=== PATIENT | female | born 1955 | race Hispanic/Latino ===

== ENCOUNTER 2017-06-11 03:11 | Emergency (ER) | payer OTHER ==
--- NOTE | 2017-06-11 04:50 | Cat Scan Report ---
FINAL REPORT EXAM: CT HEAD/BRAIN WO CON HISTORY: hematoma to rt side of head/ pt c/o dizziness TECHNIQUE: Routine axial imaging was obtained the brain without IV contrast. FINDINGS: There is no evidence of acute stroke or hemorrhage. The ventricular system is appropriate in size and is symmetric. The visualized sinuses are clear. The mastoid air cells are well pneumatized. There is mild soft tissue swelling overlying the right frontal region of the skull. There is no evidence of skull fracture. IMPRESSION: Mild right-sided pre frontal scalp swelling. No skull fracture. No evidence of acute stroke or hemorrhage.
--- NOTE | 2017-06-11 06:52 | Emergency Department Report ---
ED Headache HPI - General Chief Complaint: Headache Stated Complaint: R SIDE HEAD HEMATOMA Source: patient Exam Limitations: no limitations - History of Present Illness Initial Comments: 61 YO FEMALE WAS TAKING ICE FROM A FREEZER ON WHICH RESTED A CROCK POT , WHEN SHE CLOSED THE FREEZER , THE CROCK POT FELL ON HER HEAD. Timing/Duration: 4-6 hours Quality: moderate Head Injury Location: frontal (RIGHT ) Recent Head Trauma: head trauma < 24 hrs ago Associated Symptoms: denies symptoms. denies: loss of consciousness, nausea/ vomiting Allergies/Adverse Reactions: Allergies iodine Allergy (Verified 06/11/17 03:14) Anaphylaxis Home Medications: Ambulatory Orders oxyCODONE /ACETAMINOPHEN [Percocet 5/325] 2 tab PO Q6HR PRN #14 tablet 06/11/17 ED Review of Systems ROS: Stated complaint: R SIDE HEAD HEMATOMA Other details as noted in HPI Constitutional: denies: chills, fever Eyes: denies: eye pain, eye discharge, vision change ENT: denies: ear pain, throat pain Respiratory: denies: cough, shortness of breath, wheezing Cardiovascular: denies: chest pain, palpitations Endocrine: no symptoms reported Gastrointestinal: denies: abdominal pain, nausea, diarrhea Genitourinary: denies: urgency, dysuria, discharge Musculoskeletal: denies: back pain, joint swelling, arthralgia Skin: denies: rash, lesions Neurological: other (DIZZINESS). denies: headache, weakness, paresthesias, confusion Psychiatric: denies: anxiety, depression Hematological/Lymphatic: denies: easy bleeding, easy bruising ED Past Medical Hx - Past Medical History Previous Medical History?: Yes Hx Hypertension: Yes Additional medical history: rectal cancer; high cholesterol - Surgical History Past Surgical History?: Yes Hx Appendectomy: Yes (1978) Hx Breast Surgery: Yes (1996) Additional Surgical History: x2; knee surgery to left knee 2000; rotator cuff surgery left arm - Social History Smoking Status: Never Smoker Substance Use Type: None - Medications Home Medications: Home Medications Medication Instructions Recorded Confirmed Last Taken Type oxyCODONE /ACETAMINOPHEN [Percocet 2 tab PO Q6HR PRN #14 tablet 06/11/17 Unknown Rx 5/325] ED Physical Exam - General Limitations: No Limitations General appearance: alert, in no apparent distress - Head Head exam: Present: normocephalic, other (RIGHT FRONTAL HEMATOMA) - Eye Eye exam: Present: normal appearance - ENT ENT exam: Present: mucous membranes moist - Neck Neck exam: Present: normal inspection, full ROM - Respiratory Respiratory exam: Present: normal lung sounds bilaterally. Absent: respiratory distress - Cardiovascular Cardiovascular Exam: Present: regular rate, normal rhythm. Absent: systolic murmur, diastolic murmur, rubs, gallop - GI/Abdominal GI/Abdominal exam: Present: soft, normal bowel sounds - Rectal Rectal exam: Present: deferred - Extremities Exam Extremities exam: Present: normal inspection, full ROM - Back Exam Back exam: Present: normal inspection - Neurological Exam Neurological exam: Present: alert, oriented X3 - Psychiatric Psychiatric exam: Present: normal affect, normal mood - Skin Skin exam: Present: warm, dry, intact, normal color. Absent: rash ED Course Vital Signs 06/11/17 03:14 Temperature 98.3 F Pulse Rate 81 Blood Pressure 139/90 O2 Sat by Pulse 97 Oximetry ED Medical Decision Making - Radiology Data Radiology results: report reviewed (CT HEAD: NEGATIVE FRACURE OR BLEED, RIGHT FRONTAL HEMATOMA) Critical care attestation.: If time is entered above; I have spent that time in minutes in the direct care of this critically ill patient, excluding procedure time. ED Disposition Clinical Impression: Traumatic hematoma Closed head injury Qualifiers: Encounter type: initial encounter Qualified Code(s): S09.90XA - Unspecified injury of head, initial encounter Concussion Qualifiers: Encounter type: initial encounter Loss of consciousness presence/duration: without LOC Qualified Code(s): S06.0X0A - Concussion without loss of consciousness, initial encounter Disposition: DC-01 TO HOME OR SELFCARE Is pt being admited?: No Does the pt Need Aspirin: No Condition: Stable Instructions: Minor Head Injury (ED), Concussion (ED) Prescriptions: oxyCODONE /ACETAMINOPHEN [Percocet 5/325] 2 tab PO Q6HR PRN #14 tablet PRN Reason: Pain Referrals: VANDANA PAK MD [Primary Care Provider] - 3-5 Days Time of Disposition: 06:55
[2017-06-11 07:04] VITALS: BP 132/81
== END 2017-06-11 07:05 | disposition home or self-care (01) ==
LOC: ED 03:11
DX: S06.0X0A Concussion without loss of consciousness, initial encounter (principal); I10 Essential (primary) hypertension; E78.5 Hyperlipidemia, unspecified; Z88.8 Allergy status to other drugs, medicaments and biological substances; W22.8XXA Striking against or struck by other objects, initial encounter; Y93.9 Activity, unspecified; Y99.9 Unspecified external cause status; Y92.89 Other specified places as the place of occurrence of the external cause
CPT/HCPCS: 70450

== ENCOUNTER 2018-08-04 21:09 | Inpatient (IN) | payer OTHER ==
[2018-08-04] MEDS ORDERED: ATARAX PO ONE (22:12)
--- NOTE | 2018-08-04 22:22 | Emergency Department Report ---
- General Chief Complaint: Upper Respiratory Infection Stated Complaint: COLD SX Time Seen by Provider: 08/04/18 22:10 Source: patient Mode of arrival: Ambulatory Limitations: No Limitations - History of Present Illness MD Complaint: fever - Related Data Previous Rx's Medication Instructions Recorded Last Taken Type oxyCODONE /ACETAMINOPHEN [Percocet 2 tab PO Q6HR PRN #14 tablet 06/11/17 Unknown Rx 5/325] Allergies Allergy/AdvReac Type Severity Reaction Status Date / Time iodine Allergy Anaphylaxis Verified 06/11/17 03:14 ED Review of Systems ROS: Stated complaint: COLD SX Other details as noted in HPI ED Past Medical Hx - Past Medical History Previous Medical History?: Yes Hx Hypertension: Yes Hx of Cancer: Yes (anal stage 4. Remission) Hx Psychiatric Treatment: Yes (anextiy) Additional medical history: rectal cancer; high cholesterol - Surgical History Past Surgical History?: Yes Hx Appendectomy: Yes (1978) Hx Breast Surgery: Yes (1996) Additional Surgical History: ; knee surgery to left knee 2000; rotator cuff surgery left arm. anal surgery - Social History Smoking Status: Never Smoker Substance Use Type: None - Medications Home Medications: Home Medications Medication Instructions Recorded Confirmed Last Taken Type oxyCODONE /ACETAMINOPHEN [Percocet 2 tab PO Q6HR PRN #14 tablet 06/11/17 Unknown Rx 5/325] ED Physical Exam - General Limitations: No Limitations Critical care attestation.: If time is entered above; I have spent that time in minutes in the direct care of this critically ill patient, excluding procedure time. ED Disposition Condition: Stable
[2018-08-04 22:32] LABS: Hematocrit 42.8 % (30.3-42.9); Hemoglobin 14.4 gm/dl (10.1-14.3); Mean Corpuscular HGB Conc 34 % (30-34); Mean Corpuscular Volume 90 fl (79-97); Platelet Count 179 K/mm3 (140-440); Red Blood Count 4.76 M/mm3 (3.65-5.03)
[2018-08-04 22:47] LABS: Albumin 4.1 g/dL (3.9-5); Calcium 9.1 mg/dL (8.4-10.2)
--- NOTE | 2018-08-04 22:47 | XRay Report ---
FINAL REPORT PROCEDURE: XR CHEST ROUTINE 2V TECHNIQUE: PA and lateral chest radiographs were obtained. CPT 41814 HISTORY: mann,cough COMPARISON: No prior studies are available for comparison. FINDINGS: Heart: Normal. Mediastinum/Vessels: Normal. Lungs/Pleural space: Normal. Bony thorax: No acute osseous abnormality. Other: IMPRESSION: Normal examination.
[2018-08-04 23:17] LABS: Bilirubin,Urine NEG (Negative); Blood,Urine SM (Negative); Color,Urine Yellow (Yellow); Mucus,Urine 1+ /HPF; Urobilinogen,Urine < 2.0 mg/dL (<2.0)
[2018-08-04] MEDS ORDERED: NACL 0.9% 1000 ML IV ONE (23:22)
[2018-08-04 23:28] LABS: Band Neutrophils # (Manual) 1.4 K/mm3; Basophils % (Manual) 0 % (0.0-1.8); Eosinophils % (Manual) 0 % (0.0-4.3); RBC Morphology Normal; Total Cells Counted 100
--- NOTE | 2018-08-04 23:54 | Emergency Department Report ---
Chief Complaint: Upper Respiratory Infection Stated Complaint: COLD SX Time Seen by Provider: 08/04/18 22:10 - HPI History of Present Illness: 62 year old female comes to the emergency room stating that she started about 1 PM with body aches and cold symptoms. Patient reports that she was having shortness of breath, headache, hot hot flashes and chills. Complains of shortness of breath, sneezing a lot, abdominal abscess in the lower back pain with cough. Patient reports that she suffers from anxiety. Patient reports that she had flu several weeks ago. Patient has a history of stage IV anorectal cancer and has completed chemotherapy and radiation. - ROS Review of Systems: Positive: Shortness of breath, abdominal pain, chest pain, sneezing, hot and cold and fever with body aches. - Exam Vital Signs: Vital Signs 08/04/18 21:14 Temperature 99.2 F Pulse Rate 110 H Respiratory 22 Rate Blood Pressure 134/82 O2 Sat by Pulse 93 Oximetry Physical Exam: Gen: alert oriented NAD Cardic: Tachycardic no murmurs appreciated Resp: Clear to auscultation bilateral no wheezing no rales or rhonchi. Abdomen: Soft nontender nondistended normal bowel sounds. Mini neuro: Normal finger to nose exam, [id number] normal, Romberg neg, strengh 4/5 all extrimities, Alert and oriented time 3 Crainal nerve II-IIX intact MSE screening note: Focused history and physical exam performed. Due to findings the following was ordered: CBC, CMP, urinalysis, d-dimer, chest x-ray has been ordered. Sepsis protocol has been started. ED Medical Decision Making - Lab Data Result diagrams: 08/04/18 22:21 08/04/18 22:21 ED Disposition for MSE Condition: Stable Referrals: VANDANA PAK MD [Primary Care Provider] - 3-5 Days
[2018-08-05] MEDS ORDERED: ZOFRAN IV ONE (00:07)
[2018-08-05] MEDS ORDERED: TYLENOL PO ONE (00:07)
[2018-08-05] MEDS ORDERED: MORPHINE IV ONE ×2 (00:07→04:39)
--- NOTE | 2018-08-05 00:10 | Emergency Department Report ---
ED General Adult HPI - General Chief complaint: Upper Respiratory Infection Stated complaint: COLD SX Time Seen by Provider: 08/04/18 22:10 Source: patient Mode of arrival: Ambulatory Limitations: No Limitations - History of Present Illness Initial comments: Patient is 62 years old female with history of cancer status post chemotherapy is complete remission. Patient presented to the emergency room complaining of generalized body ache and chills started this afternoon. Patient denied any runny nose or congestion. Patient is also complaining of suprapubic abdominal pain and tenderness. She denied any nausea or vomiting or diarrhea. - Related Data Previous Rx's Medication Instructions Recorded Last Taken Type oxyCODONE /ACETAMINOPHEN [Percocet 2 tab PO Q6HR PRN #14 tablet 06/11/17 Unknown Rx 5/325] Allergies Allergy/AdvReac Type Severity Reaction Status Date / Time iodine Allergy Anaphylaxis Verified 06/11/17 03:14 ED Review of Systems ROS: Stated complaint: COLD SX Other details as noted in HPI Comment: All other systems reviewed and negative Constitutional: chills, fever Respiratory: cough. denies: orthopnea, shortness of breath, SOB with exertion, SOB at rest, wheezing Cardiovascular: denies: chest pain, palpitations Gastrointestinal: abdominal pain. denies: nausea, vomiting, diarrhea, constipation, hematemesis, melena, hematochezia Genitourinary: urgency, frequency. denies: dysuria, hematuria, discharge Musculoskeletal: denies: back pain Neurological: denies: headache, weakness, numbness, paresthesias, confusion ED Past Medical Hx - Past Medical History Previous Medical History?: Yes Hx Hypertension: Yes Hx of Cancer: Yes (anal stage 4. Remission) Hx Psychiatric Treatment: Yes (anextiy) Additional medical history: rectal cancer; high cholesterol - Surgical History Past Surgical History?: Yes Hx Appendectomy: Yes (1978) Hx Breast Surgery: Yes (1996) Additional Surgical History: x2; knee surgery to left knee 2000; rotator cuff surgery left arm. anal surgery - Social History Smoking Status: Never Smoker Substance Use Type: None - Medications Home Medications: Home Medications Medication Instructions Recorded Confirmed Last Taken Type oxyCODONE /ACETAMINOPHEN [Percocet 2 tab PO Q6HR PRN #14 tablet 06/11/17 Unknown Rx 5/325] ED Physical Exam - General Limitations: No Limitations General appearance: alert, in no apparent distress, anxious - Head Head exam: Present: atraumatic, normocephalic, normal inspection - Eye Eye exam: Present: normal appearance - ENT ENT exam: Present: normal exam, normal orophraynx, mucous membranes moist - Neck Neck exam: Present: normal inspection, full ROM. Absent: tenderness, meningismus, lymphadenopathy, thyromegaly - Respiratory Respiratory exam: Present: normal lung sounds bilaterally - Cardiovascular Cardiovascular Exam: Present: regular rate, normal rhythm, normal heart sounds - GI/Abdominal GI/Abdominal exam: Present: soft, tenderness (suprapubic tenderness), normal bowel sounds. Absent: distended, guarding, rebound, rigid, organomegaly, mass, bruit, pulsatile mass, hernia - Extremities Exam Extremities exam: Present: normal inspection, full ROM, normal capillary refill. Absent: pedal edema, calf tenderness - Back Exam Back exam: Present: normal inspection, full ROM - Neurological Exam Neurological exam: Present: alert, oriented X3, CN II-XII intact, normal gait, reflexes normal - Skin Skin exam: Present: warm, intact, normal color ED Course Vital Signs 08/04/18 08/05/18 08/05/18 21:14 02:52 03:00 Temperature 99.2 F Pulse Rate 110 H 86 Respiratory 22 21 Rate Blood Pressure 134/82 103/64 92/54 O2 Sat by Pulse 93 95 Oximetry ED Medical Decision Making - Lab Data Result diagrams: 08/04/18 22:21 08/04/18 22:21 - Radiology Data Radiology results: report reviewed Referring Physician: KAYLA SOW Patient Name: KENDRA LR Date of : 1955 Sex: Female Report Date: 2018-08-05 Report Status: Finalized Findings [facility] [address] [place] [address] Nuclear Medicine Report Signed Patient: KENDRA LR MR#: [id number] : 1955 Acct:[id number] Age/Sex: 62 / F ADM Date: 08/04/18 Loc: ED Attending Dr: Ordering Physician: KAYLA SOW Date of Service: 08/05/18 Procedure(s): NM lung scan perf/vent Accession Number(s): [id number] cc: KAYLA SOW FINAL REPORT PROCEDURE: NM LUNG SCAN PERF/VENT TECHNIQUE: Five mCi Tc-99m MAA was injected IV for pulmonary perfusion imaging in multiple projections. Fifteen xenon 133 gas was inhaled for pulmonary ventilation imaging in multiple projections. Injection site: RIGHT antecubital fossa. CPT 47824 HISTORY: cough/SOB, elevated d-dimer COMPARISON: No prior studies are available for comparison. FINDINGS: Perfusion: No defects . Ventilation: No defects . IMPRESSION: Normal Examination Transcribed By: [facility] Dictated By: FILOMENA STEVENS MD Electronically Authenticated By: FILOMENA STEVENS MD Signed Date/Time: 08/05/18304 DD/ 7 TD/TT: 08/05/18307 Referring Physician: KAYLA SOW Patient Name: KENDRA LR Date of : 1955 Sex: Female Report Date: 2018-08-05 Report Status: [place] [address] Cat Scan Report Signed Patient: KENDRA LR MR#: [id number] : 1955 Acct:[id number] Age/Sex: 62 / F ADM Date: 08/04/18 Loc: ED Attending Dr: Ordering Physician: KAYLA SOW Date of Service: 08/05/18 Procedure(s): CT abdomen pelvis wo con Accession Number(s): [id number] cc: KAYLA SOW FINAL REPORT PROCEDURE: CT ABDOMEN PELVIS WO CON TECHNIQUE: Computerized axial tomography of the abdomen and pelvis was performed without intravenous contrast. This study is performed without intravascular contrast material and its sensitivity for abdominal and pelvic pathology, including neoplasms, inflammation, abscess, free fluid, thrombosis, arterial dissection and infarction, is reduced compared with a contrast enhanced study. HISTORY: ABDOMINAL PAIN COMPARISON: No prior studies are available for comparison. FINDINGS: Visualized lower thorax: No significant abnormality. Liver: Normal size and attenuation. Spleen: Normal size and attenuation. Gallbladder and biliary system: Normal. Pancreas: Normal. Adrenals: Normal. Kidneys: Normal. GI tract: There is no evidence of obstruction. No ileus or enteritis. Cecum and appendix are normal. The colon is normal.. Lymph nodes and mesentery: Normal. Vasculature: Normal. Bladder: Normal. Reproductive organs: Normal. Peritoneum: No free fluid. Musculoskeletal structures: No significant abnormality. Other: None. IMPRESSION: There is no evidence of intestinal or urinary tract obstruction. No ileus or enteritis.. Transcribed By: [facility] Dictated By: FILOMENA STEVENS MD Electronically Authenticated By: FILOMENA STEVENS MD Signed Date/Time: 08/05/1856 DD/ TD/TT: 08/05/1858 - Medical Decision Making Patient is 62 years old female with history of cancer status post chemotherapy is complete remission. Patient presented to the emergency room complaining of generalized body ache and chills started this afternoon. Patient denied any runny nose or congestion. Patient is also complaining of suprapubic abdominal pain and tenderness. She denied any nausea or vomiting or diarrhea. Patient stated that she is feeling better. CT abdomen and pelvis is negative for acute finding. Urine is negative. Chest x-ray is negative. VQ scan is negative for PE. I discussed the patient is Dr. Woody, he agreed to admit the patient to medical service. Critical Care Time: Yes Critical care time in (mins) excluding proc time.: 30 Critical care attestation.: If time is entered above; I have spent that time in minutes in the direct care of this critically ill patient, excluding procedure time. ED Disposition Clinical Impression: Fever, Abdominal pain, Shortness of breath Disposition: OP ADMIT IP TO THIS HOSP Is pt being admited?: Yes Condition: Stable Referrals: VANDANA PAK MD [Primary Care Provider] - 3-5 Days
--- NOTE | 2018-08-05 00:57 | Cat Scan Report ---
FINAL REPORT PROCEDURE: CT ABDOMEN PELVIS WO CON TECHNIQUE: Computerized axial tomography of the abdomen and pelvis was performed without intravenous contrast. This study is performed without intravascular contrast material and its sensitivity for ab dominal and pelvic pathology, including neoplasms, inflammation, abscess, free fluid, thrombosis, art erial dissection and infarction, is reduced compared with a contrast enhanced study. HISTORY: ABDOMINAL PAIN COMPARISON: No prior studies are available for comparison. FINDINGS: Visualized lower thorax: No significant abnormality. Liver: Normal size and attenuation. Spleen: Normal size and attenuation. Gallbladder and biliary system: Normal. Pancreas: Normal. Adrenals: Normal. Kidneys: Normal. GI tract: There is no evidence of obstruction. No ileus or enteritis. Cecum and appendix are normal. The colon is normal.. Lymph nodes and mesentery: Normal. Vasculature: Normal. Bladder: Normal. Reproductive organs: Normal. Peritoneum: No free fluid. Musculoskeletal structures: No significant abnormality. Other: None. IMPRESSION: There is no evidence of intestinal or urinary tract obstruction. No ileus or enteritis..
[2018-08-05] MEDS ORDERED: ZOSYN/NS 3.375GM/50ML 3.375 GM/50 ML BAG IV ONE (01:00)
--- NOTE | 2018-08-05 03:05 | Nuclear Medicine Report ---
FINAL REPORT PROCEDURE: NM LUNG SCAN PERF/VENT TECHNIQUE: Five mCi Tc-99m MAA was injected IV for pulmonary perfusion imaging in multiple projectio ns. Fifteen xenon 133 gas was inhaled for pulmonary ventilation imaging in multiple projections. Inje ction site: RIGHT antecubital fossa. CPT 72129 HISTORY: cough/SOB, elevated d-dimer COMPARISON: No prior studies are available for comparison. FINDINGS: Perfusion: No defects . Ventilation: No defects . IMPRESSION: Normal Examination
[2018-08-05] MEDS ORDERED: ZOFRAN IV PRN (04:07)
[2018-08-05] MEDS ORDERED: ROBITUSSIN PO PRN (04:08)
--- NOTE | 2018-08-05 04:48 | History and Physical Report ---
CHIEF COMPLAINT: Flu-like symptoms. HISTORY OF PRESENT ILLNESS: The patient is a 62-year-old female, who has been having upper respiratory tract cold symptoms with congestion, cough, fever going on for about 24 hours to 48 hours. There is also a history of tachycardia and chills. The patient is also complaining of shortness of breath with no chest pain. There is also no history of nausea and vomiting or change in mental status. The patient was seen and presented for admission. PAST MEDICAL HISTORY: Pertinent for hypertension, anal stage 4 cancer in remission; anxiety disorder, high cholesterol. PAST SURGICAL HISTORY: Pertinent for appendectomy, breast surgery, , knee surgery, rotator cuff surgery and anal surgery. FAMILY HISTORY: Noncontributory. SOCIAL HISTORY: The patient lives with family, does not smoke, does not drink alcohol and does not use illicit drugs. MEDICATIONS: The patient is on Percocet 5/325 mg 2 tablets by mouth every 6 hours as needed for pain. ALLERGIES: THE PATIENT IS ALLERGIC TO IODINE. REVIEW OF SYSTEMS: CONSTITUTIONAL: There is fever, there is chills, but no diaphoresis. HEENT: There is no headache or sore throat. CARDIOVASCULAR SYSTEM: There is no chest pain or orthopnea. RESPIRATORY SYSTEM: Shortness of breath is present. Cough is present. Congestion present. GASTROINTESTINAL: There is no nausea, no vomiting, no abdominal pain, diarrhea or constipation. NEUROLOGICAL: There is no numbness, no dizziness, no altered mental status. MUSCULOSKELETAL SYSTEM: There is no joint pain or swelling. DERMATOLOGIC: There is no skin rash or itching. GENITOURINARY SYSTEM: There is no dysuria, hematuria or flank pain. Rest of the system review is normal. PHYSICAL EXAMINATION: GENERAL: At the time of exam, the patient was found to be alert, oriented x 3 and not in acute distress. VITAL SIGNS: At the initial time of presentation showed temperature of 99.2 degrees Fahrenheit, pulse of 110, respirations 22, blood pressure 134/82, O2 sat of 93% on room air. HEENT: Showed pupils to be equal, round, reactive to light and accommodating. Extraocular muscles are intact. NECK: Supple with no JVD or carotid bruits. CARDIOVASCULAR SYSTEM: Show normal first and second heart sounds with no gallops or murmurs. RESPIRATORY SYSTEM: Show good air entry on both sides of the lungs with no abnormal breath sounds. GASTROINTESTINAL SYSTEM: Show abdomen to be full, soft, nontender with no organomegaly or rigidity. NEUROLOGIC: Shows no focal deficit. MUSCULOSKELETAL SYSTEM: Show no joint swelling or tenderness. DERMATOLOGICAL SYSTEM: Show no skin rash. GENITOURINARY SYSTEM: Showing no costovertebral angle tenderness. PERTINENT LABORATORY AND IMAGING STUDIES: The patient had a chest x-ray done that came back unremarkable. Also, the patient had CT of the abdomen and pelvis done without contrast and these shows no evidence of intestinal or urinary tract obstruction. There is no ileus or enteritis. The patient had V/Q scan done because of elevated D-dimer and this shows a normal study. Lab results, the patient has CBC done with elevated white count of 19,500 and slightly elevated hemoglobin of 14.1, normal hematocrit with CBC differential showing elevated segmented neutrophil of 87%. The patient's D-dimer level was high with a value of 612.9. The patient's chemistry was unremarkable. Urinalysis shows yellow colored urine with normal urine leukocyte esterase and there are normal urine wbc's as well as normal urine rbc's. DIAGNOSES: 1. Systemic inflammatory response syndrome. 2. Leukocytosis. PLAN OF ACTION: 1. The patient will be placed on observation in the medical/surgical granger. 2. The patient will be on IV Zosyn 3.375 grams q. 8 hours given as empiric treatment for the patient's presentation. 3. The patient will be on Tylenol 650 mg by mouth every 4 hours for fever and headache. 4. The patient will be on IV Zofran 4 mg every 8 hours for nausea and vomiting. 5. The patient's DVT prophylaxis will be through heparin 5000 units subcutaneous q. 12 hours. 6. The patient will be on Robitussin 200 mg by mouth every 4 hours as needed for cough. 7. The patient's diet will be 2 g sodium diet. JOB# [id number] OCN/NTS
[2018-08-05] MEDS: HEPARIN SUB-Q SCH ×2 (09:44→21:40)
[2018-08-05] MEDS ORDERED: ZOSYN/NS 3.375GM/50ML 3.375 GM/50 ML BAG IV SCH (10:00)
[2018-08-05] MEDS: TYLENOL PO PRN ×2 (10:57→14:44)
--- NOTE | 2018-08-05 11:22 | Consultation ---
History of Present Illness - Reason for Consult Consult date: 08/05/18 Fever, Leukocytosis Requesting physician: MASODU CIFUENTES - History of Present Illness This patient is a 62 moreno old female with a past medical history of stage 4 rectal cancer, status post chemotherapy, in remission, presented to the ED on 08/04/18 with complaints of generalized body ache , chills suprapubic abdominal pain and tenderness. She denied nausea, vomiting or diarrhea. On admission WBC 19.5, Creatinine 1.0, AST 27, ALT 24, Temperature 99.2, Heart Rate 110, BP 134/82. U/A was not consistent with a UTI., Chest xray showed no consolidation. Abdomen and pelvis CT showed no evidence of intestinal or urinary tract obstruction, ileus or eteritis. Patient statesthat she had her last chemotherapy treatment 02/2018. Her last PET scan September, revealed that her rectal cancer was in remission. She continues to follwow up with her Oncologist and Radiologist every 3 month. Last appointment was June 2018. She states that in June of 2018 she was diagnosed with the flu and was treated with a Z-pack. She has been fine up until yesterday, when she presented in the ED with chills, back and abdominal pain. She also states that she had these same flu symptoms December,. Review of Systems: General: + fever, no chills, nightsweats, unintentional weight change, or change in appetite Cutaneous: no rash, pruritus Head: no headaches or injury Eyes: no changes in vision, eye pain, double vision Ears: no ear pain, ear discharge, ringing or hearing loss Nose: no nose bleeding, stuffiness Mouth & throat: no bleeding gums, no horseness, no dental problems, or swollen glands Neck: no pain, node enlargement/lumps, tyroid enlargement or tenderness Respiratory: + cough, stuffiness, no wheezing, sputum, hemoptysis, pleuritic chest pain Cardiovascular: no chest pain, leg edema, cyanosis, CARCAMO, orthopnea Musculoskeletal: no decreased joint motion, bone or joint pain, joint swelling, muscle aches Gastrointestinal: no nausea, vomiting, hematemesis, diarrhea, constipation, Genitourinary/Reproductive: no frequent urination, no dysuria, hematuria, incontinence Neurogical: no seizures, no headaches, no weakness, no paresthesias, no loss of speech Psychiatric: stable mood; no excessive anxiety, sadness or moodiness Medications and Allergies Allergies Allergy/AdvReac Type Severity Reaction Status Date / Time iodine Allergy Anaphylaxis Verified 06/11/17 03:14 Home Medications Medication Instructions Recorded Confirmed Last Taken Type oxyCODONE /ACETAMINOPHEN [Percocet 2 tab PO Q6HR PRN #14 tablet 06/11/17 Unknow n Rx 5/325] Active Meds: Active Medications Acetaminophen (Tylenol) 650 mg PO Q4H PRN PRN Reason: Fever >101 Last Admin: 08/05/18 10:57 Dose: 650 mg Documented by: Guaifenesin (Robitussin) 200 mg PO Q4H PRN PRN Reason: Cough Last Admin: 08/05/18 10:58 Dose: 200 mg Documented by: Heparin Sodium (Porcine) (Heparin) 5,000 unit SUB-Q Q12HR JASWINDER Last Admin: 08/05/18 09:44 Dose: 5,000 unit Documented by: Piperacillin Sod/Tazobactam Sod (Zosyn/Ns 3.375gm/50ml) 3.375 gm in 50 mls @ 100 mls/hr IV Q8H JASWINDER; Protocol Last Admin: 08/05/18 10:49 Dose: 100 mls/hr Documented by: Ondansetron HCl (Zofran) 4 mg IV Q8H PRN PRN Reason: Nausea And Vomiting Physical Examination - Physical Exam Narrative exam: Constitutional: Alert, cooperative. mild distress Head, Ears, Nose: Normocephalic, atraumatic. External ears, nose normal Eyes: Conjunctivae/corneas clear. No icterus. No ptosis. Neck: Supple, no meningeal signs Oral: dentition good, no thrush Cardiovascular: S1, S2 normal. Respiratory: Good air entry, clear to auscultation bilaterally, +upper respiratory congestion GI: Soft, non-tender; bowel sounds normal. No peritoneal signs Musculoskeletal: No pedal edema, no cyanosis. Skin: No rash or abscess. Hem/Lymphatic: No palpable cervical or supraclavicular nodes. No lymphangitis Psych: Mood ok. Affect normal Neurological: Awake, alert, oriented. G - Constitutional Vitals: Vital Signs Temp Pulse Resp BP Pulse Ox 99.9 F H 88 20 102/56 95 08/05/18 06:19 08/05/18 06:19 08/05/18 06:19 08/05/18 06:19 08/05/18 06:19 Temperature -Last 24 Hours Temperature 99.9 F Temperature 99.2 F Results - Labs CBC & Chem 7: 08/04/18 22:21 08/04/18 22:21 Labs: Abnormal lab results 08/04/18 08/04/18 08/04/18 Range/Units 22:21 22:21 23:47 WBC 19.5 H (4.5-11.0) K/mm3 Hgb 14.4 H (10.1-14.3) gm/dl Seg Neuts % (Manual) 87.0 H (40.0-70.0) % Lymphocytes % (Manual) 4.0 L (13.4-35.0) % Seg Neutrophils # Man 17.0 H (1.8-7.7) K/mm3 Lymphocytes # (Manual) 0.8 L (1.2-5.4) K/mm3 D-Dimer 612.95 H (0-234) ng/mlDDU Glucose 176 H (65-100) mg/dL Assessment and Plan Imaging 08/04/2018 chest Xray ; no consolidation 08/05/2018 Abdomen/Pelvis CT: no evidence of intestinal or urinary tract obstruction, ileus or eteritis. Cultures: 08/04/2018 Blood: In progress A/P: 62 -year-old female with a medical history of stage 4 rectal cancer, status post chemotherapy, in remission,, now admitted with: 1. SIRS vs sepsis on admission: evidenced by leukocytosis and tachycardia. Etiology unclear. Chest xray shows no consolidation, U/A is not consistent with a UTI, Blood cultures were drawn and are pending, Influenza rapid is negative. Low grade temperature. Currently being treated with Zosyn. 2. Stage 4 Rectal CA - s/p chemotherapy,02/2018. PET scan 09/2017 indicated cancer remission. Plan -Order Influenza PCR -f/u blood cultures -continue Zosyn for now d/w Dr.Shah Almaz Jones, WAITER/WAITRESS [employer]MAL [facility] M: [id number] O:[phone]
[2018-08-05] MEDS ORDERED: ZOSYN/NS 4.5GM/100ML 4.5 GM/100 ML VIAL IV SCH (16:00)
--- NOTE | 2018-08-05 16:09 | Progress Note ---
Assessment and Plan Assessment and plan: Febrile illness. Poss Influenza consulted ID Physician SIRS vs Sepsis. Blood cultures no growth History of Rectal cancer s/p chemotherapy on 03/07 Full code status History Interval history: Fever, Gen body aches Hospitalist Physical - Physical exam Narrative exam: GEN: Not in acute distress,lying in bed,morbidly obese HEENT: Normocephalic, atraumatic, Neck: supple, No JVD Lungs: Clear to auscultation, no wheeze Heart:S1 and S2 regular, no murmurs, rubs or gallop, Abd:soft, non tender, non distended, normal bowel sounds Ext: No edema, no clubbing or cyanosis Neuro: Awake,alert, oriented x 3, No focal signs Psych:Normal mood - Constitutional Vitals: Temp Pulse Resp BP Pulse Ox 99.9 F H 88 20 102/56 95 08/05/18 06:19 08/05/18 06:19 08/05/18 06:19 08/05/18 06:19 08/05/18 06:19 Results - Labs CBC & Chem 7: 08/06/18 06:38 08/06/18 06:38 Labs: Laboratory Last Values WBC 19.5 K/mm3 (4.5-11.0) H 08/04/18 22:21 RBC 4.76 M/mm3 (3.65-5.03) 08/04/18 22:21 Hgb 14.4 gm/dl (10.1-14.3) H 08/04/18 22:21 Hct 42.8 % (30.3-42.9) 08/04/18 22:21 MCV 90 fl (79-97) 08/04/18 22:21 MCH 30 pg (28-32) 08/04/18 22:21 MCHC 34 % (30-34) 08/04/18 22:21 RDW 14.0 % (13.2-15.2) 08/04/18 22:21 Plt Count 179 K/mm3 (140-440) 08/04/18 22:21 Add Manual Diff Complete 08/04/18 22:21 Total Counted 100 08/04/18 22:21 Seg Neutrophils % Field Cane Scale Clerk 08/04/18 22:21 Seg Neuts % (Manual) 87.0 % (40.0-70.0) H 08/04/18 22:21 Band Neutrophils % 7.0 % 08/04/18 22:21 Lymphocytes % (Manual) 4.0 % (13.4-35.0) L 08/04/18 22:21 Reactive Lymphs % (Man) 0 % 08/04/18 22:21 Monocytes % (Manual) 2.0 % (0.0-7.3) 08/04/18 22:21 Eosinophils % (Manual) 0 % (0.0-4.3) 08/04/18 22:21 Basophils % (Manual) 0 % (0.0-1.8) 08/04/18 22:21 Metamyelocytes % 0 % 08/04/18 22:21 Myelocytes % 0 % 08/04/18 22:21 Promyelocytes % 0 % 08/04/18 22:21 Blast Cells % 0 % 08/04/18 22:21 Nucleated RBC % Not Reportable 08/04/18 22:21 Seg Neutrophils # Man 17.0 K/mm3 (1.8-7.7) H 08/04/18 22:21 Band Neutrophils # 1.4 K/mm3 08/04/18 22:21 Lymphocytes # (Manual) 0.8 K/mm3 (1.2-5.4) L 08/04/18 22:21 Abs React Lymphs (Man) 0.0 K/mm3 08/04/18 22:21 Monocytes # (Manual) 0.4 K/mm3 (0.0-0.8) 08/04/18 22:21 Eosinophils # (Manual) 0.0 K/mm3 (0.0-0.4) 08/04/18 22:21 Basophils # (Manual) 0.0 K/mm3 (0.0-0.1) 08/04/18 22:21 Metamyelocytes # 0.0 K/mm3 08/04/18 22:21 Myelocytes # 0.0 K/mm3 08/04/18 22:21 Promyelocytes # 0.0 K/mm3 08/04/18 22:21 Blast Cells # 0.0 K/mm3 08/04/18 22:21 WBC Morphology Not Reportable 08/04/18 22:21 Hypersegmented Neuts Not Reportable 08/04/18 22:21 Hyposegmented Neuts Not Reportable 08/04/18 22:21 Hypogranular Neuts Not Reportable 08/04/18 22:21 Smudge Cells Not Reportable 08/04/18 22:21 Toxic Granulation Not Reportable 08/04/18 22:21 Toxic Vacuolation Not Reportable 08/04/18 22:21 Dohle Bodies Not Reportable 08/04/18 22:21 Pelger-Huet Anomaly Not Reportable 08/04/18 22:21 Lena Rods Not Reportable 08/04/18 22:21 Platelet Estimate Appears normal 08/04/18 22:21 Clumped Platelets Not Reportable 08/04/18 22:21 Plt Clumps, EDTA Not Reportable 08/04/18 22:21 Large Platelets Not Reportable 08/04/18 22:21 Giant Platelets Not Reportable 08/04/18 22:21 Platelet Satelliting Not Reportable 08/04/18 22:21 Plt Morphology Comment Not Reportable 08/04/18 22:21 RBC Morphology Normal 08/04/18 22:21 Dimorphic RBCs Not Reportable 08/04/18 22:21 Polychromasia Not Reportable 08/04/18 22:21 Hypochromasia Not Reportable 08/04/18 22:21 Poikilocytosis Not Reportable 08/04/18 22:21 Anisocytosis Not Reportable 08/04/18 22:21 Microcytosis Not Reportable 08/04/18 22:21 Macrocytosis Not Reportable 08/04/18 22:21 Spherocytes Not Reportable 08/04/18 22:21 Pappenheimer Bodies Not Reportable 08/04/18 22:21 Sickle Cells Not Reportable 08/04/18 22:21 Target Cells Not Reportable 08/04/18 22:21 Tear Drop Cells Not Reportable 08/04/18 22:21 Ovalocytes Not Reportable 08/04/18 22:21 Helmet Cells Not Reportable 08/04/18 22:21 [place] Bodies Not Reportable 08/04/18 22:21 [place] Rings Not Reportable 08/04/18 22:21 [place] Cells Not Reportable 08/04/18 22:21 Bite Cells Not Reportable 08/04/18 22:21 Crenated Cell Not Reportable 08/04/18 22:21 Elliptocytes Not Reportable 08/04/18 22:21 Acanthocytes (Spur) Not Reportable 08/04/18 22:21 Rouleaux Not Reportable 08/04/18 22:21 Hemoglobin C Crystals Not Reportable 08/04/18 22:21 Schistocytes Not Reportable 08/04/18 22:21 Malaria parasites Not Reportable 08/04/18 22:21 [place] Bodies Not Reportable 08/04/18 22:21 Hem Pathologist Commnt No 08/04/18 22:21 D-Dimer 612.95 ng/mlDDU (0-234) H 08/04/18 23:47 Sodium 139 mmol/L (137-145) 08/04/18 22:21 Potassium 3.9 mmol/L (3.6-5.0) 08/04/18 22:21 Chloride 101.3 mmol/L (98-107) 08/04/18 22:21 Carbon Dioxide 25 mmol/L (22-30) 08/04/18 22:21 Anion Gap 17 mmol/L 08/04/18 22:21 BUN 14 mg/dL (7-17) 08/04/18 22:21 Creatinine 1.0 mg/dL (0.7-1.2) 08/04/18 22:21 Estimated GFR 57 ml/min 08/04/18 22:21 BUN/Creatinine Ratio 14 % 08/04/18 22:21 Glucose 176 mg/dL (65-100) H 08/04/18 22:21 Lactic Acid 1.90 mmol/L (0.7-2.0) 08/04/18 23:47 Calcium 9.1 mg/dL (8.4-10.2) 08/04/18 22:21 Total Bilirubin 0.70 mg/dL (0.1-1.2) 08/04/18 22:21 AST 27 units/L (5-40) 08/04/18 22:21 ALT 24 units/L (7-56) 08/04/18 22:21 Alkaline Phosphatase 67 units/L (35-129) 08/04/18 22:21 Total Protein 6.6 g/dL (6.3-8.2) 08/04/18 22:21 Albumin 4.1 g/dL (3.9-5) 08/04/18 22:21 Albumin/Globulin Ratio 1.6 % 08/04/18 22:21 Urine Color Yellow (Yellow) 08/04/18 Unknown Urine Turbidity Clear (Clear) 08/04/18 Unknown Urine pH 5.0 (5.0-7.0) 08/04/18 Unknown Ur Specific [place] 1.025 (1.003-1.030) 08/04/18 Unknown Urine Protein 30 mg/dl mg/dL (Negative) 08/04/18 Unknown Urine Glucose (UA) Neg mg/dL (Negative) 08/04/18 Unknown Urine Ketones Neg mg/dL (Negative) 08/04/18 Unknown Urine Blood Sm (Negative) 08/04/18 Unknown Urine Nitrite Neg (Negative) 08/04/18 Unknown Urine Bilirubin Neg (Negative) 08/04/18 Unknown Urine Urobilinogen < 2.0 mg/dL (<2.0) 08/04/18 Unknown Ur Leukocyte Esterase Sm (Negative) 08/04/18 Unknown Urine WBC (Auto) 6.0 /HPF (0.0-6.0) 08/04/18 Unknown Urine RBC (Auto) 5.0 /HPF (0.0-6.0) 08/04/18 Unknown U Epithel Cells (Auto) < 1.0 /HPF (0-13.0) 08/04/18 Unknown Urine Mucus 1+ /HPF 08/04/18 Unknown Influenza A (Rapid) Negative (Negative) 08/04/18 Unknown Influenza A (RT-PCR) Negative (Negative) 08/05/18 13:46 Influenza B (Rapid) Negative (Negative) 08/04/18 Unknown Influenza B (RT-PCR) Negative (Negative) 08/05/18 13:46
[2018-08-05] MEDS ORDERED: NORCO 5/325 PO PRN (16:25)
[2018-08-05] MEDS: ROCEPHIN/NS 2 GM/100 ML 2 GM/100 ML BAG IV SCH (18:36)
[2018-08-05] MEDS: TAMIFLU PO SCH (18:36)
[2018-08-05] MEDS: NORCO 5/325 PO PRN (23:33)
[2018-08-06] MEDS: NORCO 5/325 PO PRN ×2 (05:58→10:33)
[2018-08-06 07:20] LABS: Hematocrit 38.2 % (30.3-42.9); Mean Corpuscular HGB Conc 34 % (30-34); Mean Corpuscular Volume 90 fl (79-97); Platelet Count 137 K/mm3 (140-440); Red Blood Count 4.25 M/mm3 (3.65-5.03); Red Cell Distribution Width 13.8 % (13.2-15.2)
[2018-08-06 07:34] LABS: BUN/Creatinine Ratio 11; Blood Urea Nitrogen 9 mg/dL (7-17); Calcium 8.7 mg/dL (8.4-10.2); Hemolysis Index 0
[2018-08-06] MEDS ORDERED: K-DUR PO ONE (09:00)
--- NOTE | 2018-08-06 09:34 | Progress Note ---
Assessment and Plan Imaging 08/04/2018 chest Xray ; no consolidation 08/05/2018 Abdomen/Pelvis CT: no evidence of intestinal or urinary tract obs truction, ileus or eteritis. Cultures: 08/04/2018 Gram Positive Cocci, 1 out of 4 bottles A/P: 62 -year-old female with a medical history of stage 4 rectal cancer, status post chemotherapy, in remission,, now admitted with: 1. SIRS vs sepsis on admission: evidenced by leukocytosis and tachycardia. Etiology unclear. Chest xray shows no consolidation, U/A is not consistent with a UTI, Blood cultures were drawn and are pending, Influenza rapid is negative, influenza PCR negative.. 2. Coag negative staph bacteremia - cultures grew GPC, 1 out of 4 bottles. Likely contaminant 3. Stage 4 Rectal CA - s/p chemotherapy,02/2018. PET scan 09/2017 indicated cancer remission. Plan -f/u blood cultures -Continue Ceftriaxone while inpatient -continue tamiflu D2 of D5 -upon discharge can switch to Ceftin 500 mg po, q 12H for five days -prescriptions on chart -d/w Dr. Nathanael Jones, EXECUTIVE DIRECTOR [employer] [facility] M: [id number] O:[phone] Subjective Date of service: 08/06/18 Interval history: Patient seen and examined. Stated that she was feeling better today and was ready to be discharged home. Nurses notes, labs and reports reviewed, discussed with patient. Objective - Exam Narrative Exam: Constitutional: Alert, cooperative. no acute distress Head, Ears, Nose: Normocephalic, atraumatic. External ears, nose normal Eyes: Conjunctivae/corneas clear. No icterus. No ptosis. Neck: Supple, no meningeal signs Oral: dentition good, no thrush Cardiovascular: S1, S2 normal. Respiratory: Good air entry, clear to auscultation bilaterally, +upper respiratory congestion GI: Soft, non-tender; bowel sounds normal. No peritoneal signs Musculoskeletal: No pedal edema, no cyanosis. Skin: No rash or abscess. Hem/Lymphatic: No palpable cervical or supraclavicular nodes. No lymphangitis Psych: Mood ok. Affect normal Neurological: Awake, alert, oriented. G - Constitutional Vitals: Vital Signs Temp Pulse Resp BP Pulse Ox 99.5 F 85 18 129/56 95 08/06/18 05:48 08/06/18 05:48 08/06/18 05:58 08/06/18 05:48 08/06/18 05:48 Temperature -Last 24 Hours Temperature 99.5 F Temperature 102.8 F Temperature 101.9 F - Labs CBC & Chem 7: 08/06/18 06:38 08/06/18 06:38 Labs: Abnormal lab results 08/06/18 08/06/18 Range/Units 06:38 06:38 Plt Count 137 L (140-440) K/mm3 Sodium 136 L (137-145) mmol/L Potassium 3.5 L (3.6-5.0) mmol/L Glucose 122 H (65-100) mg/dL
[2018-08-06] MEDS: ROCEPHIN/NS 2 GM/100 ML 2 GM/100 ML BAG IV SCH (10:12)
[2018-08-06] MEDS: HEPARIN SUB-Q SCH (10:13)
[2018-08-06] MEDS: TAMIFLU PO SCH (10:13)
--- NOTE | 2018-08-06 11:55 | Progress Note ---
Assessment and Plan Assessment and plan: Febrile illness. Poss Influenza consulted ID Physician and she was evaluated started on Tamiflu SIRS vs Sepsis. Blood cultures Coagulase negative staph 1 in 2. may be contamination. ID Physician to evaluate History of Rectal cancer s/p chemotherapy on 03/07 Full code status History Interval history: Fever, Gen body aches Hospitalist Physical - Physical exam Narrative exam: GEN: Not in acute distress,lying in bed,morbidly obese HEENT: Normocephalic, atraumatic, Neck: supple, No JVD Lungs: Clear to auscultation, no wheeze Heart:S1 and S2 regular, no murmurs, rubs or gallop, Abd:soft, non tender, non distended, normal bowel sounds Ext: No edema, no clubbing or cyanosis Neuro: Awake,alert, oriented x 3, No focal signs Psych:Normal mood - Constitutional Vitals: Temp Pulse Resp BP Pulse Ox 99.5 F 85 18 129/56 95 08/06/18 05:48 08/06/18 05:48 08/06/18 05:58 08/06/18 05:48 08/06/18 05:48 Results - Labs CBC & Chem 7: 08/06/18 06:38 08/06/18 06:38 Labs: Laboratory Last Values WBC 9.8 K/mm3 (4.5-11.0) 08/06/18 06:38 RBC 4.25 M/mm3 (3.65-5.03) 08/06/18 06:38 Hgb 13.0 gm/dl (10.1-14.3) 08/06/18 06:38 Hct 38.2 % (30.3-42.9) 08/06/18 06:38 MCV 90 fl (79-97) 08/06/18 06:38 MCH 31 pg (28-32) 08/06/18 06:38 MCHC 34 % (30-34) 08/06/18 06:38 RDW 13.8 % (13.2-15.2) 08/06/18 06:38 Plt Count 137 K/mm3 (140-440) L 08/06/18 06:38 Add Manual Diff Complete 08/04/18 22:21 Total Counted 100 08/04/18 22:21 Seg Neutrophils % Weight Loss Sales Consultant 08/04/18 22:21 Seg Neuts % (Manual) 87.0 % (40.0-70.0) H 08/04/18 22:21 Band Neutrophils % 7.0 % 08/04/18 22:21 Lymphocytes % (Manual) 4.0 % (13.4-35.0) L 08/04/18 22:21 Reactive Lymphs % (Man) 0 % 08/04/18 22:21 Monocytes % (Manual) 2.0 % (0.0-7.3) 08/04/18 22:21 Eosinophils % (Manual) 0 % (0.0-4.3) 08/04/18 22:21 Basophils % (Manual) 0 % (0.0-1.8) 08/04/18 22:21 Metamyelocytes % 0 % 08/04/18 22:21 Myelocytes % 0 % 08/04/18 22:21 Promyelocytes % 0 % 08/04/18 22:21 Blast Cells % 0 % 08/04/18 22:21 Nucleated RBC % Not Reportable 08/04/18 22:21 Seg Neutrophils # Man 17.0 K/mm3 (1.8-7.7) H 08/04/18 22:21 Band Neutrophils # 1.4 K/mm3 08/04/18 22:21 Lymphocytes # (Manual) 0.8 K/mm3 (1.2-5.4) L 08/04/18 22:21 Abs React Lymphs (Man) 0.0 K/mm3 08/04/18 22:21 Monocytes # (Manual) 0.4 K/mm3 (0.0-0.8) 08/04/18 22:21 Eosinophils # (Manual) 0.0 K/mm3 (0.0-0.4) 08/04/18 22:21 Basophils # (Manual) 0.0 K/mm3 (0.0-0.1) 08/04/18 22:21 Metamyelocytes # 0.0 K/mm3 08/04/18 22:21 Myelocytes # 0.0 K/mm3 08/04/18 22:21 Promyelocytes # 0.0 K/mm3 08/04/18 22:21 Blast Cells # 0.0 K/mm3 08/04/18 22:21 WBC Morphology Not Reportable 08/04/18 22:21 Hypersegmented Neuts Not Reportable 08/04/18 22:21 Hyposegmented Neuts Not Reportable 08/04/18 22:21 Hypogranular Neuts Not Reportable 08/04/18 22:21 Smudge Cells Not Reportable 08/04/18 22:21 Toxic Granulation Not Reportable 08/04/18 22:21 Toxic Vacuolation Not Reportable 08/04/18 22:21 Dohle Bodies Not Reportable 08/04/18 22:21 Pelger-Huet Anomaly Not Reportable 08/04/18 22:21 Lena Rods Not Reportable 08/04/18 22:21 Platelet Estimate Appears normal 08/04/18 22:21 Clumped Platelets Not Reportable 08/04/18 22:21 Plt Clumps, EDTA Not Reportable 08/04/18 22:21 Large Platelets Not Reportable 08/04/18 22:21 Giant Platelets Not Reportable 08/04/18 22:21 Platelet Satelliting Not Reportable 08/04/18 22:21 Plt Morphology Comment Not Reportable 08/04/18 22:21 RBC Morphology Normal 08/04/18 22:21 Dimorphic RBCs Not Reportable 08/04/18 22:21 Polychromasia Not Reportable 08/04/18 22:21 Hypochromasia Not Reportable 08/04/18 22:21 Poikilocytosis Not Reportable 08/04/18 22:21 Anisocytosis Not Reportable 08/04/18 22:21 Microcytosis Not Reportable 08/04/18 22:21 Macrocytosis Not Reportable 08/04/18 22:21 Spherocytes Not Reportable 08/04/18 22:21 Pappenheimer Bodies Not Reportable 08/04/18 22:21 Sickle Cells Not Reportable 08/04/18 22:21 Target Cells Not Reportable 08/04/18 22:21 Tear Drop Cells Not Reportable 08/04/18 22:21 Ovalocytes Not Reportable 08/04/18 22:21 Helmet Cells Not Reportable 08/04/18 22:21 [place] Bodies Not Reportable 08/04/18 22:21 [place] Rings Not Reportable 08/04/18 22:21 [place] Cells Not Reportable 08/04/18 22:21 Bite Cells Not Reportable 08/04/18 22:21 Crenated Cell Not Reportable 08/04/18 22:21 Elliptocytes Not Reportable 08/04/18 22:21 Acanthocytes (Spur) Not Reportable 08/04/18 22:21 Rouleaux Not Reportable 08/04/18 22:21 Hemoglobin C Crystals Not Reportable 08/04/18 22:21 Schistocytes Not Reportable 08/04/18 22:21 Malaria parasites Not Reportable 08/04/18 22:21 [place] Bodies Not Reportable 08/04/18 22:21 Hem Pathologist Commnt No 08/04/18 22:21 D-Dimer 612.95 ng/mlDDU (0-234) H 08/04/18 23:47 Sodium 136 mmol/L (137-145) L 08/06/18 06:38 Potassium 3.5 mmol/L (3.6-5.0) L 08/06/18 06:38 Chloride 100.9 mmol/L (98-107) 08/06/18 06:38 Carbon Dioxide 23 mmol/L (22-30) 08/06/18 06:38 Anion Gap 16 mmol/L 08/06/18 06:38 BUN 9 mg/dL (7-17) 08/06/18 06:38 Creatinine 0.8 mg/dL (0.7-1.2) 08/06/18 06:38 Estimated GFR > 60 ml/min 08/06/18 06:38 BUN/Creatinine Ratio 11 % 08/06/18 06:38 Glucose 122 mg/dL (65-100) H 08/06/18 06:38 Lactic Acid 1.90 mmol/L (0.7-2.0) 08/04/18 23:47 Calcium 8.7 mg/dL (8.4-10.2) 08/06/18 06:38 Total Bilirubin 0.70 mg/dL (0.1-1.2) 08/04/18 22:21 AST 27 units/L (5-40) 08/04/18 22:21 ALT 24 units/L (7-56) 08/04/18 22:21 Alkaline Phosphatase 67 units/L (35-129) 08/04/18 22:21 Total Protein 6.6 g/dL (6.3-8.2) 08/04/18 22:21 Albumin 4.1 g/dL (3.9-5) 08/04/18 22:21 Albumin/Globulin Ratio 1.6 % 08/04/18 22:21 Urine Color Yellow (Yellow) 08/04/18 Unknown Urine Turbidity Clear (Clear) 08/04/18 Unknown Urine pH 5.0 (5.0-7.0) 08/04/18 Unknown Ur Specific [place] 1.025 (1.003-1.030) 08/04/18 Unknown Urine Protein 30 mg/dl mg/dL (Negative) 08/04/18 Unknown Urine Glucose (UA) Neg mg/dL (Negative) 08/04/18 Unknown Urine Ketones Neg mg/dL (Negative) 08/04/18 Unknown Urine Blood Sm (Negative) 08/04/18 Unknown Urine Nitrite Neg (Negative) 08/04/18 Unknown Urine Bilirubin Neg (Negative) 08/04/18 Unknown Urine Urobilinogen < 2.0 mg/dL (<2.0) 08/04/18 Unknown Ur Leukocyte Esterase Sm (Negative) 08/04/18 Unknown Urine WBC (Auto) 6.0 /HPF (0.0-6.0) 08/04/18 Unknown Urine RBC (Auto) 5.0 /HPF (0.0-6.0) 08/04/18 Unknown U Epithel Cells (Auto) < 1.0 /HPF (0-13.0) 08/04/18 Unknown Urine Mucus 1+ /HPF 08/04/18 Unknown Influenza A (Rapid) Negative (Negative) 08/04/18 Unknown Influenza A (RT-PCR) Negative (Negative) 08/05/18 13:46 Influenza B (Rapid) Negative (Negative) 08/04/18 Unknown Influenza B (RT-PCR) Negative (Negative) 08/05/18 13:46
[2018-08-06 14:04] VITALS: BP 107/62
--- NOTE | 2018-08-06 16:07 | Discharge Summary ---
Providers - Providers Date of Admission: 08/05/18 03:50 Date of discharge: 08/06/18 Attending physician: MASOUD CIFUENTES 08/05/18 09:51 Consult to Physician [CONS] Routine Comment: Consulting Provider: KENTRELL VALVERDE Physician Instructions: Reason For Exam: Fever, Leukocytosis,flu-like Primary care physician: VANDANA PAK Hospitalization Condition: Fair Hospital course: Febrile illness. Influenza consulted ID Physician and she was evaluated started on Tamiflu Sepsis. Blood cultures Coagulase negative staph 1 in 2, contamination History of Rectal cancer s/p chemotherapy on 03/07 ID Physician recommend dc home on Tamiflu and Ceftin Total time spent on discharge, 31 mins Disposition: DC-01 TO HOME OR SELFCARE - Discharge Diagnoses (1) Fever Status: Acute (2) Sepsis Status: Acute Core Measure Documentation - Palliative Care Palliative Care/ Comfort Measures: Not Applicable - Core Measures Any of the following diagnoses?: none Exam - Constitutional Vitals: Temp Pulse Resp BP Pulse Ox 98.3 F 69 22 107/62 94 08/06/18 12:08 08/06/18 12:08 08/06/18 12:08 08/06/18 12:08 08/06/18 12:08 Plan Activity: advance as tolerated Diet: low fat, low cholesterol, low salt Additional Instructions: 1.Follow up with PCP in 1 week Follow up with: VANDANA PAK MD [Primary Care Provider] - 3-5 Days Prescriptions: cefUROXime [Ceftin] 500 mg PO Q12H 5 Days #20 tablet guaiFENesin [Robitussin] 200 mg PO Q4H PRN #1 bottle PRN Reason: Cough Oseltamivir [Tamiflu] 75 mg PO BID 3 Days #6 cap
[2018-08-06] MEDS: TYLENOL PO PRN (17:02)
== END 2018-08-06 17:38 | disposition home or self-care (01) | DRG 872 ==
LOC: ED 21:09 → 3A 08-05 03:50
PROVIDERS: ADMIT Internal Medicine; ATTEND Internal Medicine
DX: A41.9 Sepsis, unspecified organism (principal); F41.9 Anxiety disorder, unspecified; I10 Essential (primary) hypertension; J11.1 Influenza due to unidentified influenza virus with other respiratory manifestations; Z91.041 Radiographic dye allergy status; Z79.899 Other long term (current) drug therapy; Z85.048 Personal history of other malignant neoplasm of rectum, rectosigmoid junction, and anus; Z90.49 Acquired absence of other specified parts of digestive tract
CPT/HCPCS: 36415; 71046; 74176; 78582; 80048; 80053; 81001; 82140; 85007; 85025; 85027; 85379; 87040; 87400; 96374; 96375; 99291; G0378; A9540; A9558; J0696; J1644; J2270; J2405; J2543; J7030

== ENCOUNTER 2019-02-13 12:37 | Emergency (ER) | payer OTHER ==
[2019-02-13] MEDS ORDERED: TORADOL IV ONE (12:54)
[2019-02-13] MEDS ORDERED: ZOFRAN IV ONE (12:54)
[2019-02-13] MEDS ORDERED: NACL 0.9% 1000 ML 1,000 ML IV ONE (12:54)
--- NOTE | 2019-02-13 12:54 | Event Note ---
Date: [birth year] 63 y.o female with suprapubic pain, 15/10, sharp, radiating to her back, accompanied with dysuria. Alleviating by urination, moving is an exacerbating factor. Took motrin and fell asleep. She woke up this am, with vomiting, headache, numbness in hands. pmhx: htn, hld, anal cancer, kidney stones pshx: appendectomy, , arthroscopic surg in knees, breast reduction sochx: no tobacco, alcohol, or drug use. The initial assessment/diagnostic orders/clinical plan/treatment(s) is/are subject to change based on patient's health status,clinical progression and re- assessment by fellow clinical providers in the ED. Further treatment and workup at subsequent clinical providers discretion. Patient/guardian urged not to elope from the ED as their condition may be serious if not clinically assessed and managed.
[2019-02-13 13:29] LABS: Basophils # (Auto) 0.1 K/mm3 (0.0-0.1); Basophils % (Auto) 0.4 % (0.0-1.8); Hematocrit 42.1 % (30.3-42.9); Hemoglobin 14.5 gm/dl (10.1-14.3); Lymphocytes # (Auto) 1.9 K/mm3 (1.2-5.4); Lymphocytes % (Auto) 10.2 % (13.4-35.0); Mean Corpuscular HGB Conc 35 % (30-34); Mean Corpuscular Volume 88 fl (79-97); Monocytes # (Auto) 0.8 K/mm3 (0.0-0.8); Monocytes % (Auto) 4.5 % (0.0-7.3); Platelet Count 201 K/mm3 (140-440); Red Blood Count 4.79 M/mm3 (3.65-5.03); Red Cell Distribution Width 13.8 % (13.2-15.2)
[2019-02-13 13:46] LABS: Calcium 9.4 mg/dL (8.4-10.2)
--- NOTE | 2019-02-13 14:25 | Cat Scan Report ---
CT ABDOMEN AND PELVIS WITHOUT CONTRAST, 02/13/2019 INDICATION: Generalized abdominal pain. TECHNICAL: Multiple axial CT images of the abdomen and pelvis were acquired without intravenous contr ast. Sagittal and coronal reformats were obtained. All CTs at this facility utilize dose reduction techniques including automated exposure control, iterative reconstruction and weight based dosing whe n appropriate to reduce patient radiation dose to as low as reasonable achievable. COMPARISON: No prior studies are available for comparison. FINDINGS: Limited imaging of the bilateral lung bases demonstrates no evidence of acute abnormality. Abdomen: Within the limitations of today's noncontrast study, the liver, gallbladder, spleen, pancrea s, bilateral adrenal glands and bilateral kidneys show no evidence of acute abnormality. There is a n onobstructing 4 mm stone within the midportion of the right kidney. There is minimal scattered athero sclerotic calcification along the abdominal aorta without evidence for aneurysm. The appendix is not clearly identified. There is no evidence of bowel obstruction. Pelvis: Uterus and urinary bladder appear within normal limits. No large amount of free pelvic fluid is identified. Evaluation of bony structures demonstrate no evidence of acute bony abnormality. IMPRESSION: 1. No CT evidence of acute inflammatory or obstructive process within the abdomen or pelvis. Signer Name: Jessica Herron MD Signed: 02/13/2019 2:21 PM Workstation Name: [id number]
--- NOTE | 2019-02-13 14:40 | Emergency Department Report ---
ED Abdominal Pain HPI - General Chief Complaint: Abdominal Pain Stated Complaint: SOB/VOMIT/HEADACHE Time Seen by Provider: 02/13/19 14:10 Source: patient Mode of arrival: Ambulatory Limitations: No Limitations - History of Present Illness Initial Comments: This is a 63-year-old female who presents to the emergency room for abdominal pain radiating to her back since yesterday. Past medical history of hypertension, hyperlipidemia, anal cancer, kidney stones. She reports pain as sharp in intensity. She also reports dysuria. Patient reports symptoms started with diarrhea, chills, headache, and vomiting which all resolved. States symptoms are similar to the last time she had kidney stones. Reports symptoms are worse with movement. Patient took Motrin for symptomatic relief. MD Complaint: abdominal pain Onset/Timin -: days(s) Location: LLQ, RLQ Radiation: back Migration to: no migration Severity scale (0 -10): 10 Quality: sharp Consistency: constant Improves With: nothing Worsens With: movement Associated Symptoms: nausea, vomiting, diarrhea, chills, dysuria. denies: fever, constipation, hematemesis, hematochezia, melena, hematuria, anorexia, syncope Treatments Prior to Arrival: NSAIDs - Related Data Previous Rx's Medication Instructions Recorded Last Taken Type oxyCODONE /ACETAMINOPHEN [Percocet 2 tab PO Q6HR PRN #14 tablet 06/11/17 Unknown Rx 5/325 mg] Oseltamivir [Tamiflu] 75 mg PO BID 3 Days #6 cap 08/06/18 Unknown Rx cefUROXime [Ceftin] 500 mg PO Q12H 5 Days #20 tablet 08/06/18 Unknown Rx guaiFENesin [Robitussin] 200 mg PO Q4H PRN #1 bottle 08/06/18 Unknown Rx Ciprofloxacin HCl [Ciprofloxacin 500 mg PO Q12HR 10 Days #20 tab 02/13/19 Unknown Rx TAB] Naproxen [Naprosyn] 500 mg PO BID PRN #20 tablet 02/13/19 Unknown Rx Ondansetron [Zofran Odt] 4 mg PO Q8HR PRN #20 tab.rapdis 02/13/19 Unknown Rx traMADol [Ultram 50 MG tab] 50 mg PO Q6HR PRN #12 tablet 02/13/19 Unknown Rx Allergies Allergy/AdvReac Type Severity Reaction Status Date / Time iodine Allergy Anaphylaxis Verified 06/11/17 03:14 ED Review of Systems ROS: Stated complaint: SOB/VOMIT/HEADACHE Other details as noted in HPI Constitutional: chills, fever Respiratory: denies: cough, shortness of breath, wheezing Cardiovascular: denies: chest pain, palpitations Gastrointestinal: abdominal pain, nausea, vomiting, diarrhea. denies: constipation, hematemesis, melena, hematochezia Genitourinary: dysuria. denies: urgency, discharge Musculoskeletal: back pain. denies: joint swelling, arthralgia Skin: denies: rash, lesions Neurological: denies: headache, weakness, paresthesias Psychiatric: denies: anxiety, depression ED Past Medical Hx - Past Medical History Previous Medical History?: Yes Hx Hypertension: Yes Hx Psychiatric Treatment: Yes (anxiety) Additional medical history: anal cancer; high cholesterol - Surgical History Past Surgical History?: Yes Hx Appendectomy: Yes (1978) Hx Breast Surgery: Yes (1996) Additional Surgical History: ; knee surgery to left knee 2000; rotator cuff surgery left arm. anal surgery - Social History Smoking Status: Never Smoker Substance Use Type: None - Medications Home Medications: Home Medications Medication Instructions Recorded Confirmed Last Taken Type oxyCODONE /ACETAMINOPHEN [Percocet 2 tab PO Q6HR PRN #14 tablet 06/11/17 Unknown Rx 5/325 mg] Oseltamivir [Tamiflu] 75 mg PO BID 3 Days #6 cap 08/06/18 Unknown Rx cefUROXime [Ceftin] 500 mg PO Q12H 5 Days #20 tablet 08/06/18 Unknown Rx guaiFENesin [Robitussin] 200 mg PO Q4H PRN #1 bottle 08/06/18 Unknown Rx Ciprofloxacin HCl [Ciprofloxacin 500 mg PO Q12HR 10 Days #20 tab 02/13/19 Unknown Rx TAB] Naproxen [Naprosyn] 500 mg PO BID PRN #20 tablet 02/13/19 Unknown Rx Ondansetron [Zofran Odt] 4 mg PO Q8HR PRN #20 tab.rapdis 02/13/19 Unknown Rx traMADol [Ultram 50 MG tab] 50 mg PO Q6HR PRN #12 tablet 02/13/19 Unknown Rx ED Physical Exam - General Limitations: No Limitations General appearance: alert, in no apparent distress, obese (morbidly) - Respiratory Respiratory exam: Present: normal lung sounds bilaterally. Absent: respiratory distress - Cardiovascular Cardiovascular Exam: Present: regular rate, normal rhythm. Absent: systolic murmur, diastolic murmur, rubs, gallop - GI/Abdominal GI/Abdominal exam: Present: soft, tenderness (left lower quadrant), normal bowel sounds. Absent: distended, guarding, rebound, rigid, organomegaly - Back Exam Back exam: Absent: CVA tenderness (R), CVA tenderness (L) - Neurological Exam Neurological exam: Present: alert, oriented X3, normal gait - Psychiatric Psychiatric exam: Present: normal affect, normal mood - Skin Skin exam: Present: warm, dry, intact, normal color. Absent: rash ED Course Vital Signs 02/13/19 12:50 Temperature 98.5 F Pulse Rate 90 Respiratory 18 Rate Blood Pressure 116/75 O2 Sat by Pulse 95 Oximetry ED Medical Decision Making - Lab Data Result diagrams: 02/13/19 13:14 02/13/19 13:14 Lab Results 02/13/19 02/13/19 02/13/19 Range/Units 13:14 13:14 15:20 WBC 18.7 H (4.5-11.0) K/mm3 RBC 4.79 (3.65-5.03) M/mm3 Hgb 14.5 H (10.1-14.3) gm/dl Hct 42.1 (30.3-42.9) % MCV 88 (79-97) fl MCH 30 (28-32) pg MCHC 35 H (30-34) % RDW 13.8 (13.2-15.2) % Plt Count 201 (140-440) K/mm3 Lymph % (Auto) 10.2 L (13.4-35.0) % [place] % (Auto) 4.5 (0.0-7.3) % Eos % (Auto) 0.0 (0.0-4.3) % Baso % (Auto) 0.4 (0.0-1.8) % Lymph # 1.9 (1.2-5.4) K/mm3 [place] # 0.8 (0.0-0.8) K/mm3 Eos # 0.0 (0.0-0.4) K/mm3 Baso # 0.1 (0.0-0.1) K/mm3 Seg Neutrophils % 84.9 H (40.0-70.0) % Seg Neutrophils # 15.9 H (1.8-7.7) K/mm3 Sodium 135 L (137-145) mmol/L Potassium 3.5 L (3.6-5.0) mmol/L Chloride 99.5 (98-107) mmol/L Carbon Dioxide 21 L (22-30) mmol/L Anion Gap 18 mmol/L BUN 11 (7-17) mg/dL Creatinine 1.0 (0.7-1.2) mg/dL Estimated GFR 56 ml/min BUN/Creatinine Ratio 11 % Glucose 138 H (65-100) mg/dL Calcium 9.4 (8.4-10.2) mg/dL Amylase 36 (27-131) units/L Lipase 16 (13-60) units/L Urine Color Hannah (Yellow) Urine Turbidity Slightly-cloudy (Clear) Urine pH 5.0 (5.0-7.0) Ur Specific [place] 1.032 H (1.003-1.030) Urine Protein 100 mg/dl (Negative) mg/dL Urine Glucose (UA) Neg (Negative) mg/dL Urine Ketones Neg (Negative) mg/dL Urine Blood Neg (Negative) Urine Nitrite Neg (Negative) Urine Bilirubin Neg (Negative) Urine Urobilinogen < 2.0 (<2.0) mg/dL Ur Leukocyte Esterase Mod (Negative) Urine WBC (Auto) 53.0 H (0.0-6.0) /HPF Urine RBC (Auto) 5.0 (0.0-6.0) /HPF U Epithel Cells (Auto) 7.0 (0-13.0) /HPF Hyaline Casts 2 /LPF Urine Mucus 3+ /HPF - Radiology Data Radiology results: report reviewed CT ABDOMEN AND PELVIS WITHOUT CONTRAST, 02/13/2019 INDICATION: Generalized abdominal pain. TECHNICAL: Multiple axial CT images of the abdomen and pelvis were acquired without intravenous contrast. Sagittal and coronal reformats were obtained. All CTs at this facility utilize dose reduction techniques including automated exposure control, iterative reconstruction and weight based dosing when appropriate to reduce patient radiation dose to as low as reasonable achievable. COMPARISON: No prior studies are available for comparison. FINDINGS: Limited imaging of the bilateral lung bases demonstrates no evidence of acute abnormality. Abdomen: Within the limitations of today's noncontrast study, the liver, gallbladder, spleen, pancreas, bilateral adrenal glands and bilateral kidneys show no evidence of acute abnormality. There is a nonobstructing 4 mm stone within the midportion of the right kidney. There is minimal scattered atherosclerotic calcification along the abdominal aorta without evidence for aneurysm. The appendix is not clearly identified. There is no evidence of bowel obstruction. Pelvis: Uterus and urinary bladder appear within normal limits. No large amount of free pelvic fluid is identified. Evaluation of bony structures demonstrate no evidence of acute bony abnormality. IMPRESSION: 1. No CT evidence of acute inflammatory or obstructive process within the abdomen or pelvis. - Medical Decision Making Patient was examined by me. Patient is nontoxic appearing and stable. Vitals are normal. Obtained labs and CT of abdomen and pelvis. White count 18,000. Urinalysis positive for infection. CT findings of the following No CT evidence of acute inflammatory or obstructive process within the abdomen or pelvis. Although CT scan of no acute findings patient still will be treated for pyelonephritis. IV site obtained. She'll given analgesics, normal saline 1 L bolus, Rocephin 1 g. Patient informed of results. Start cipro, naproxen, zofran, and tramadol. Follow up with PCP. Patient discharged home in stable condition. Critical care attestation.: If time is entered above; I have spent that time in minutes in the direct care of this critically ill patient, excluding procedure time. ED Disposition Clinical Impression: Nausea and vomiting in adult, Pyelonephritis Abdominal pain Qualifiers: Abdominal location: generalized Qualified Code(s): R10.84 - Generalized abdominal pain Disposition: - TO HOME OR SELFCARE Is pt being admited?: No Does the pt Need Aspirin: No Condition: Stable Instructions: Abdominal Pain (ED), Acute Pyelonephritis (ED) Prescriptions: Ciprofloxacin HCl [Ciprofloxacin TAB] 500 mg PO Q12HR 10 Days #20 tab Naproxen [Naprosyn] 500 mg PO BID PRN #20 tablet PRN Reason: Pain, Moderate (4-6) traMADol [Ultram 50 MG tab] 50 mg PO Q6HR PRN #12 tablet PRN Reason: Pain Ondansetron [Zofran Odt] 4 mg PO Q8HR PRN #20 tab.rapdis PRN Reason: Nausea And Vomiting Referrals: [facility] [Provider Group] - 3-5 Days [facility] [Provider Group] - 3-5 Days [facility] [Provider Group] - 3-5 Days ABDIEL VALENZUELA MD [Staff Physician] - 3-5 Days Time of Disposition: 16:49
[2019-02-13 15:38] LABS: Bilirubin,Urine NEG (Negative); Blood,Urine NEG (Negative); Color,Urine Amber (Yellow); Hyaline Casts,Urine 2 /LPF; Mucus,Urine 3+ /HPF; Urobilinogen,Urine < 2.0 mg/dL (<2.0)
[2019-02-13] MEDS ORDERED: ROCEPHIN/NS 1 GM/50 ML 1 GM/50 ML BAG IV ONE (15:41)
[2019-02-13 17:01] VITALS: BP 125/78
== END 2019-02-13 17:00 | disposition home or self-care (01) ==
LOC: ED 12:37
DX: N12 Tubulo-interstitial nephritis, not specified as acute or chronic (principal); I10 Essential (primary) hypertension; F41.9 Anxiety disorder, unspecified; E78.00 Pure hypercholesterolemia, unspecified; Z90.49 Acquired absence of other specified parts of digestive tract; Z98.890 Other specified postprocedural states; Z79.899 Other long term (current) drug therapy; Z88.8 Allergy status to other drugs, medicaments and biological substances
CPT/HCPCS: 36415; 74176; 80048; 81001; 82150; 83690; 85025; 87086; 96361; 96365; 96375; 99284; J0696; J1885; J2405; J7030

== ENCOUNTER 2019-05-18 12:00 | Emergency (ER) | payer OTHER ==
--- NOTE | 2019-05-18 12:26 | Emergency Department Report ---
Blank Doc - Documentation Documentation: 63-year-old female that presents with chest pain and SOB. This initial assessment/diagnostic orders/clinical plan/treatment(s) is/are subject to change based on patient's health status, clinical progression and re- assessment by fellow clinical providers in the ED. Further treatment and workup at subsequent clinical providers discretion. Patient/guardians urged not to elope from the ED as their condition may be serious if not clinically assessed and managed. Initial orders include: 1- Patient sent to MAIN ED for further evaluation and treatment 2- labs 3- EKG 4- CXR
--- NOTE | 2019-05-18 13:15 | XRay Report ---
CHEST 2 VIEWS INDICATION / CLINICAL INFORMATION: Chest Pain. COMPARISON: Chest x-ray on 08/04/2018. FINDINGS: SUPPORT DEVICES: None. HEART / MEDIASTINUM: Normal heart size. Atherosclerosis in the thoracic aorta. LUNGS / PLEURA: No significant pulmonary or pleural abnormality. No pneumothorax. ADDITIONAL FINDINGS: No significant additional findings. IMPRESSION: 1. No acute findings. Signer Name: Stevie David MD Signed: 05/18/2019 1:10 PM Workstation Name: [id number]
--- NOTE | 2019-05-18 14:46 | Emergency Department Report ---
<NOHEMI NARVAEZ - Last Filed: 05/19/19 20:59> ED Chest Pain HPI - General Chief Complaint: Chest Pain Stated Complaint: CHEST PAIN Time Seen by Provider: 05/18/19 12:25 Source: patient Mode of arrival: Ambulatory Limitations: No Limitations - History of Present Illness Initial Comments: 63-year-old female patient with history of hypertension and anal cancer (now in remission) presents with complaints of substernal chest pain yesterday. He states the pain began after having a very stressful situation occur. She states the pain lasted a few minutes and she felt anxious so she took her clonazepam and she went to sleep and the pain resolved. She states the pain returned again upon waking this morning. She describes the pain as a pressure that bores through to her back. She denies any shortness of breath, hi story of OR/CVA/DVT/PE, recent long travel, or leg swelling. Does admit to intermittent pain in her right lower leg for the past week. She denies any oral contraceptives or hormone replacement. She also denies any family history of heart disease. Patient states her pain worsens with exertion and improves at rest and is currently a 5/10 in severity MD Complaint: chest pain -: Sudden, hour(s) Onset: during rest Pain Location: substernal Pain Radiation: back Severity: moderate Severity scale (0 -10): 5 Quality: pressure Consistency: constant Improves With: remaining still Worsens With: exertion re: denies: nausea, vomting, dyspnea Other Symptoms: denies: cough, syncope, leg swelling, palpitations Treatments Prior to Arrival: none - Related Data Home Medications Medication Instructions Recorded Confirmed Last Taken FLUoxetine HCL [PROzac] 40 mg PO QDAY 05/18/19 05/18/19 05/17/19 Simvastatin 40 mg PO QDAY 05/18/19 05/18/19 05/17/19 hydroCHLOROthiazide [HCTZ] 25 mg PO QDAY 05/18/19 05/18/19 05/17/19 Previous Rx's Medication Instructions Recorded Last Taken Type Diclofenac Sodium 75 mg PO BID PRN #14 tablet. 05/18/19 Unknown Rx Allergies Allergy/AdvReac Type Severity Reaction Status Date / Time iodine Allergy Anaphylaxis Verified 06/11/17 03:14 Heart Score - HEART Score History: Slightly suspicious EKG: Non-specific Age: 45-65 Risk factors: 1-2 risk factors Troponin: < normal limit HEART Score: 3 - Critical Actions Critical Actions: 0-3 pts:0.9-1.7%risk of adverse cardiac event.Candidate for discharge ED Review of Systems Constitutional: denies: chills, fever Eyes: denies: vision change Respiratory: denies: cough, shortness of breath, SOB with exertion, wheezing Cardiovascular: chest pain. denies: palpitations, dyspnea on exertion, edema, syncope Gastrointestinal: denies: abdominal pain, nausea, vomiting Genitourinary: denies: dysuria, frequency, hematuria Musculoskeletal: denies: back pain, arthralgia, myalgia Skin: as per HPI Neurological: headache (mild intermittent headaches for the past few weeks, denies any current headache ). denies: weakness, numbness, paresthesias, confusion, abnormal gait Psychiatric: denies: anxiety, depression ED Past Medical Hx - Past Medical History Previous Medical History?: Yes Hx Hypertension: Yes Hx Psychiatric Treatment: Yes (anxiety) Additional medical history: anal cancer; high cholesterol - Surgical History Hx Appendectomy: Yes (1978) Hx Breast Surgery: Yes (1996) Additional Surgical History: x2; knee surgery to left knee 2000; rotator cuff surgery left arm. anal surgery - Social History Smoking Status: Never Smoker Substance Use Type: None - Medications Home Medications: Home Medications Medication Instructions Recorded Confirmed Last Taken Type Diclofenac Sodium 75 mg PO BID PRN #14 tablet. 05/18/19 Unknown Rx FLUoxetine HCL [PROzac] 40 mg PO QDAY 05/18/19 05/18/19 05/17/19 History Simvastatin 40 mg PO QDAY 05/18/19 05/18/19 05/17/19 History hydroCHLOROthiazide [HCTZ] 25 mg PO QDAY 05/18/19 05/18/19 05/17/19 History ED Physical Exam - General Limitations: No Limitations ED Medical Decision Making - Lab Data Result diagrams: 05/18/19 14:58 05/18/19 14:07 Lab Results 05/18/19 05/18/19 05/18/19 Range/Units 14:07 14:58 14:58 WBC 5.3 (4.5-11.0) K/mm3 RBC 4.60 (3.65-5.03) M/mm3 Hgb 13.9 (10.1-14.3) gm/dl Hct 40.7 (30.3-42.9) % MCV 88 (79-97) fl MCH 30 (28-32) pg MCHC 34 (30-34) % RDW 13.9 (13.2-15.2) % Plt Count 184 (140-440) K/mm3 Lymph % (Auto) 36.1 H (13.4-35.0) % [place] % (Auto) 8.1 H (0.0-7.3) % Eos % (Auto) 3.5 (0.0-4.3) % Baso % (Auto) 0.8 (0.0-1.8) % Lymph # 1.9 (1.2-5.4) K/mm3 [place] # 0.4 (0.0-0.8) K/mm3 Eos # 0.2 (0.0-0.4) K/mm3 Baso # 0.0 (0.0-0.1) K/mm3 Seg Neutrophils % 51.5 (40.0-70.0) % Seg Neutrophils # 2.7 (1.8-7.7) K/mm3 PT 13.4 (12.2-14.9) Sec. INR 1.03 (0.87-1.13) APTT 22.6 L (24.2-36.6) Sec. Sodium 137 (137-145) mmol/L Potassium 4.2 (3.6-5.0) mmol/L Chloride 103.9 (98-107) mmol/L Carbon Dioxide 20 L (22-30) mmol/L Anion Gap 17 mmol/L BUN 12 (7-17) mg/dL Creatinine 0.7 (0.7-1.2) mg/dL Estimated GFR > 60 ml/min BUN/Creatinine Ratio 17 % Glucose 164 H (65-100) mg/dL Calcium 9.0 (8.4-10.2) mg/dL Total Bilirubin 0.30 (0.1-1.2) mg/dL AST 50 H (5-40) units/L ALT 40 (7-56) units/L Alkaline Phosphatase 80 (35-129) units/L Troponin T < 0.010 (0.00-0.029) ng/mL Total Protein 7.5 (6.3-8.2) g/dL Albumin 3.8 L (3.9-5) g/dL Albumin/Globulin Ratio 1.0 % 05/18/19 Range/Units 14:58 WBC (4.5-11.0) K/mm3 RBC (3.65-5.03) M/mm3 Hgb (10.1-14.3) gm/dl Hct (30.3-42.9) % MCV (79-97) fl MCH (28-32) pg MCHC (30-34) % RDW (13.2-15.2) % Plt Count (140-440) K/mm3 Lymph % (Auto) (13.4-35.0) % [place] % (Auto) (0.0-7.3) % Eos % (Auto) (0.0-4.3) % Baso % (Auto) (0.0-1.8) % Lymph # (1.2-5.4) K/mm3 [place] # (0.0-0.8) K/mm3 Eos # (0.0-0.4) K/mm3 Baso # (0.0-0.1) K/mm3 Seg Neutrophils % (40.0-70.0) % Seg Neutrophils # (1.8-7.7) K/mm3 PT (12.2-14.9) Sec. INR (0.87-1.13) APTT (24.2-36.6) Sec. Sodium (137-145) mmol/L Potassium (3.6-5.0) mmol/L Chloride (98-107) mmol/L Carbon Dioxide (22-30) mmol/L Anion Gap mmol/L BUN (7-17) mg/dL Creatinine (0.7-1.2) mg/dL Estimated GFR ml/min BUN/Creatinine Ratio % Glucose (65-100) mg/dL Calcium (8.4-10.2) mg/dL Total Bilirubin (0.1-1.2) mg/dL AST (5-40) units/L ALT (7-56) units/L Alkaline Phosphatase (35-129) units/L Troponin T < 0.010 (0.00-0.029) ng/mL Total Protein (6.3-8.2) g/dL Albumin (3.9-5) g/dL Albumin/Globulin Ratio % - EKG Data EKG shows normal: sinus rhythm - Radiology Data Radiology results: report reviewed CHEST 2 VIEWS INDICATION / CLINICAL INFORMATION: Chest Pain. COMPARISON: Chest x-ray on 08/04/2018. FINDINGS: SUPPORT DEVICES: None. HEART / MEDIASTINUM: Normal heart size. Atherosclerosis in the thoracic aorta. LUNGS / PLEURA: No significant pulmonary or pleural abnormality. No pneumothorax. ADDITIONAL FINDINGS: No significant additional findings. IMPRESSION: 1. No acute findings. - Medical Decision Making 63-year-old female patient with history of hypertension and anal cancer (now in remission) presents with complaints of substernal chest pain yesterday. Trop neg. EKG is without acute findings. CXR wnl. Labs wnl. Vitals wnl. Heart score = 3. Chest pain is palpable and improved with toradol. Recommend f/u with cardiology in 2-5 days. Discussed strict return precautions i n detail with pt who states understanding. ED Disposition Clinical Impression: Chest pain in adult, Hyperglycemia Disposition: - TO HOME OR SELFCARE Is pt being admited?: No Condition: Stable Instructions: Chest Pain (ED), Costochondritis (ED) Additional Instructions: please follow up with a finished goods inspector and your Primary care doctor concerning your chest pain and elevated blood glucose Prescriptions: Diclofenac Sodium 75 mg PO BID PRN #14 tablet.dr LUCAS Reason: Pain , Severe (7-10) Referrals: TRUDI VEGA MD [Staff Physician] - 3-5 Days <VAL VALADEZ - Last Filed: 05/22/19 15:08> ED Review of Systems ROS: Stated complaint: CHEST PAIN Other details as noted in HPI ED Course Vital Signs 05/18/19 05/18/19 05/18/19 12:26 13:46 14:00 Temperature 97.9 F Pulse Rate 70 67 Respiratory 20 19 Rate Blood Pressure 152/87 131/70 Blood Pressure [Right] O2 Sat by Pulse 96 94 95 Oximetry 05/18/19 05/18/19 05/18/19 14:01 14:15 14:31 Temperature 98.3 F Pulse Rate 82 66 64 Respiratory 15 9 L 16 Rate Blood Pressure 141/75 151/58 Blood Pressure 138/77 [Right] O2 Sat by Pulse 96 97 96 Oximetry 05/18/19 05/18/19 05/18/19 14:45 17:05 17:15 Temperature Pulse Rate 62 65 60 Respiratory 16 14 18 Rate Blood Pressure 132/76 126/77 Blood Pressure 126/77 [Right] O2 Sat by Pulse 97 97 96 Oximetry ED Medical Decision Making - Lab Data Result diagrams: 05/18/19 14:58 05/18/19 14:07 - Medical Decision Making This case was reviewed with me. It is arriving in my queue several days later. I will review it with the mid-level practitioner. Critical care attestation.: If time is entered above; I have spent that time in minutes in the direct care of this critically ill patient, excluding procedure time. ED Disposition Is pt being admited?: No Does the pt Need Aspirin: No Time of Disposition: 15:08
[2019-05-18 15:10] LABS: Basophils % (Auto) 0.8 % (0.0-1.8); Eosinophils # (Auto) 0.2 K/mm3 (0.0-0.4); Eosinophils % (Auto) 3.5 % (0.0-4.3); Hematocrit 40.7 % (30.3-42.9); Hemoglobin 13.9 gm/dl (10.1-14.3); Lymphocytes # (Auto) 1.9 K/mm3 (1.2-5.4); Lymphocytes % (Auto) 36.1 % (13.4-35.0); Mean Corpuscular HGB Conc 34 % (30-34); Mean Corpuscular Volume 88 fl (79-97); Monocytes # (Auto) 0.4 K/mm3 (0.0-0.8); Monocytes % (Auto) 8.1 % (0.0-7.3); Platelet Count 184 K/mm3 (140-440); Red Cell Distribution Width 13.9 % (13.2-15.2)
[2019-05-18 15:20] LABS: INR 1.03 (0.87-1.13)
[2019-05-18 15:22] LABS: Partial Thromboplastin Time 22.6 Sec. (24.2-36.6)
[2019-05-18] MEDS ORDERED: SODIUM CHLORIDE 0.9% 1000 ML 1,000 ML IV ONE (15:23)
[2019-05-18 15:29] LABS: Albumin 3.8 g/dL (3.9-5); BUN/Creatinine Ratio 17; Blood Urea Nitrogen 12 mg/dL (7-17); Hemolysis Index 155
[2019-05-18 15:49] LABS: Alanine Aminotransferase 40 units/L (7-56)
--- NOTE | 2019-05-18 15:50 | Vascular Lab Report ---
Duplex venous ultrasound analysis right leg HISTORY: Right leg pain. COMPARISON: None FINDINGS: No evidence of deep vein thrombosis. Incidentally noted is what appears to be a complex popliteal cyst, measuring approximately 2.5 cm x 0 .8 cm x 0.7 cm. Signer Name: Lance Cabezas MD Signed: 05/18/2019 3:45 PM Workstation Name: [id number]
[2019-05-18 17:05] VITALS: BP 126/77
[2019-05-18] MEDS ORDERED: KETOROLAC 30 MG/1 ML INJ IV ONE (17:44)
== END 2019-05-18 18:34 | disposition home or self-care (01) ==
LOC: ED 12:00
DX: R07.2 Precordial pain (principal); I10 Essential (primary) hypertension; R73.9 Hyperglycemia, unspecified; F41.9 Anxiety disorder, unspecified; R42 Dizziness and giddiness; E78.00 Pure hypercholesterolemia, unspecified; Z90.49 Acquired absence of other specified parts of digestive tract; Z98.890 Other specified postprocedural states; Z91.041 Radiographic dye allergy status; Z79.899 Other long term (current) drug therapy
CPT/HCPCS: 36415; 71046; 80053; 84484; 85025; 85610; 85730; 93005; 93010; 93971; 96361; 96374; 99284; J1885; J7030

== ENCOUNTER 2021-04-14 14:36 | Inpatient (IN) | payer OTHER ==
[2021-04-14] MEDS ORDERED: HYDROcodone/ACETAMINOPHEN 10-325MG TAB PO ONE (15:24)
[2021-04-14] MEDS ORDERED: ASPIRIN 325 MG TAB PO ONE (15:24)
--- NOTE | 2021-04-14 15:28 | Emergency Department Report ---
ED Chest Pain HPI - General Chief Complaint: Chest Pain Stated Complaint: CHEST PAINS,NAUSEA,TIGHTNESS TINGLING Time Seen by Provider: 04/14/21 15:11 Source: patient Mode of arrival: Ambulatory Limitations: No Limitations - History of Present Illness Initial Comments: 65-year-old female with a past medical history of hypertension, diabetes, hyperlipidemia, depression, anal cancer diagnosed in 2017 status post chemo and radiation treatment, currently in remission since 2018 and obesity presents to the ER today with complaints of chest pain. Patient states that on she developed upper diffuse anterior chest pain. She states that the pain has been constant but waxes and wanes and radiates into her left upper arm, and into her left upper back and she reports some mild numbness in her left upper arm. She states that the pain is worse when she moves, especially when she moves her upper body in the left upper arm and sometimes when she takes a deep breath. She described as a "someone sitting on my chest". She did take ibuprofen once for the pain but that did not help. She states that it seems like when she does not move the pain is better. She reports associated nausea, diaphoresis and shortness of breath. He states that she did have a dry cough last night but otherwise denies any other URI symptoms or body aches. she denies any lower extremity swelling or calf pain. She denies any fever or chills. She denies any history of PE or DVT. She states that she took the Pfizer vaccine, completed in October 2020. She reports family history of heart disease, specifically her dad at 65, and some of her uncles. She states that she did have a heart cath and a stress test about 10 years ago at the time it was normal. Complaint: chest pain (2) -: days(s) (2) - Related Data Home Medications Medication Instructions Recorded Confirmed Last Taken FLUoxetine HCL [PROzac] 40 mg PO QDAY 05/18/19 05/18/19 05/17/19 Simvastatin 40 mg PO QDAY 05/18/19 05/18/19 05/17/19 hydroCHLOROthiazide [HCTZ] 25 mg PO QDAY 05/18/19 05/18/19 05/17/19 Previous Rx's Medication Instructions Recorded Last Taken Type Diclofenac Sodium 75 mg PO BID PRN #14 tablet. 05/18/19 Unknown Rx Amoxicillin/Potassium Clav 1 each PO BID 7 Days #14 tablet 07/22/19 Unknown Rx [Augmentin 875-125 Tablet] Fluconazole (Nf) [Diflucan TAB] 150 mg PO ONCE #1 tablet 07/22/19 Unknown Rx Ibuprofen [Motrin 800 MG tab] 800 mg PO Q8HR PRN #21 tablet 07/22/19 Unknown Rx Mupirocin [Bactroban 2% OINT] 1 applic TP TID 10 Days #1 tube 07/22/19 Unknown Rx traMADoL [Ultram 50 MG tab] 50 mg PO Q6HR PRN #10 tablet 07/22/19 Unknown Rx Allergies Allergy/AdvReac Type Severity Reaction Status Date / Time iodine Allergy Anaphylaxis Verified 06/11/17 03:14 Heart Score - HEART Score History: Moderately suspicious EKG: Normal Age: 45-65 Risk factors: > 3 risk factors or hx of atherosclerotic disease Troponin: < normal limit HEART Score: 4 - EKG Read Time Time EKG Completed: 14:49 EKG Read Time: 14:56 ED Review of Systems ROS: Stated complaint: CHEST PAINS,NAUSEA,TIGHTNESS TINGLING Other details as noted in HPI Comment: All other systems reviewed and negative Constitutional: denies: chills, fever Eyes: denies: eye pain, eye discharge, vision change ENT: denies: ear pain, throat pain Respiratory: cough (dry), shortness of breath. denies: wheezing Cardiovascular: denies: chest pain, palpitations Endocrine: no symptoms reported Gastrointestinal: denies: abdominal pain, nausea, vomiting, diarrhea, constipation, hematemesis, melena, hematochezia Genitourinary: denies: urgency, dysuria, frequency, hematuria, discharge, abnormal menses, dyspareunia Musculoskeletal: back pain. denies: joint swelling, arthralgia, myalgia Skin: denies: rash, lesions, change in color, change in hair/nails, pruritus Neurological: denies: headache, weakness, numbness, paresthesias, confusion, abnormal gait, vertigo Psychiatric: denies: anxiety, depression, auditory hallucinations, visual hallucinations, homicidal thoughts, suicidal thoughts Hematological/Lymphatic: denies: easy bleeding, easy bruising, swollen glands ED Past Medical Hx - Past Medical History Previous Medical History?: Yes Hx Hypertension: Yes Hx Psychiatric Treatment: Yes (anxiety) Additional medical history: anal cancer; high cholesterol - Surgical History Past Surgical History?: Yes Hx Appendectomy: Yes (1978) Hx Breast Surgery: Yes (1996 reduction) Additional Surgical History: x2; knee surgery to left knee 2000; rotator cuff surgery left arm. anal surgery - Social History Smoking Status: Former Smoker Substance Use Type: Alcohol - Medications Home Medications: Home Medications Medication Instructions Recorded Confirmed Last Taken Type Diclofenac Sodium 75 mg PO BID PRN #14 tablet. 05/18/19 Unknown Rx FLUoxetine HCL [PROzac] 40 mg PO QDAY 05/18/19 05/18/19 05/17/19 History Simvastatin 40 mg PO QDAY 05/18/19 05/18/19 05/17/19 History hydroCHLOROthiazide [HCTZ] 25 mg PO QDAY 05/18/19 05/18/19 05/17/19 History Amoxicillin/Potassium Clav 1 each PO BID 7 Days #14 tablet 07/22/19 Unknown Rx [Augmentin 875-125 Tablet] Fluconazole (Nf) [Diflucan TAB] 150 mg PO ONCE #1 tablet 07/22/19 Unknown Rx Ibuprofen [Motrin 800 MG tab] 800 mg PO Q8HR PRN #21 tablet 07/22/19 Unknown Rx Mupirocin [Bactroban 2% OINT] 1 applic TP TID 10 Days #1 tube 07/22/19 Unknown Rx traMADoL [Ultram 50 MG tab] 50 mg PO Q6HR PRN #10 tablet 07/22/19 Unknown Rx ED Physical Exam - General Limitations: No Limitations General appearance: alert, in no apparent distress, obese - Head Head exam: Present: atraumatic, normocephalic, normal inspection - Eye Eye exam: Present: normal appearance, PERRL, EOMI Pupils: Present: normal accommodation - ENT ENT exam: Present: normal exam, mucous membranes moist - Neck Neck exam: Present: normal inspection, full ROM - Respiratory Respiratory exam: Present: normal lung sounds bilaterally, chest wall tenderness (mild ttp left anterior chest wall ). Absent: respiratory distress, wheezes, rales, rhonchi - Cardiovascular Cardiovascular Exam: Present: regular rate, normal rhythm, normal heart sounds - GI/Abdominal GI/Abdominal exam: Present: soft. Absent: distended, tenderness, guarding, rebound - Extremities Exam Extremities exam: Present: normal inspection, full ROM, normal capillary refill. Absent: tenderness, pedal edema, calf tenderness - Back Exam Back exam: Present: normal inspection, full ROM, paraspinal tenderness (Mod ttp left upper back ). Absent: vertebral tenderness - Neurological Exam Neurological exam: Present: alert, oriented X3, CN II-XII intact, normal gait - Psychiatric Psychiatric exam: Present: normal affect, normal mood - Skin Skin exam: Present: intact ED Course Vital Signs 04/14/21 04/14/21 14:55 18:33 Temperature 97.4 F L 98.6 F Pulse Rate 76 77 Respiratory 24 18 Rate Blood Pressure 133/79 Blood Pressure 125/73 [Right] O2 Sat by Pulse 83 L 100 Oximetry ED Medical Decision Making - Lab Data Result diagrams: 04/14/21 15:30 04/14/21 15:30 - EKG Data Rate: normal (75) No standard instances Ectopy: PAC - EKG Data Interpretation: other (No STEMI, or significant ischemic changes or significant dysrhythmias.) - Radiology Data Radiology results: report reviewed Patient: KENDRA LR MR#: [id number] : 1955 Acct:[id number] Age/Sex: 65 / F ADM Date: 04/14/21 Loc: ED Attending Dr: Ordering Physician: NOHEMI NARVAEZ Date of Service: 04/14/21 Procedure(s): XR chest routine 2V Accession Number(s): [id number] cc: NOHEMI NARVAEZ Fluoro Time In Minutes: CHEST 2 VIEWS INDICATION / CLINICAL INFORMATION: chest pain. COMPARISON: 05/18/2019 FINDINGS: SUPPORT DEVICES: None. HEART / MEDIASTINUM: No significant abnormality. LUNGS / PLEURA: No significant pulmonary or pleural abnormality. No pneumothorax. ADDITIONAL FINDINGS: No significant additional findings. IMPRESSION: 1. No acute findings. Signer Name: Jaime Ku MD Signed: 04/14/2021 3:57 PM Workstation Name: [id number] Transcribed By: SB Dictated By: JAIME KU MD Electronically Authenticated By: JAIME KU MD Signed Date/Time: 04/14/211556 DD/ 56 TD/TT: - Medical Decision Making 1856: All labs reviewed -- CBC and CMP unremarkable. Trop negative. D-Dimer is elevated at 713. cxr shows nothing acute. EKG ectopic beats with HR of 74 but otherwise no STEMI, acute ischemic changes or significant dysrhythmias. Patient unable to get his CT angiography of the chest due to the anaphylactic reaction to IV dye. VQ scan was ordered and is currently pending. Repeat troponin is pending. Patient was seen and evaluated together with Dr. Lozano, given patient age, symptomology and her risk factors including family hx of heart disease and a heart score of 4, she recommend an inpatient to the hospital. 1906: Discussed case with Dr Tovar, hospitalist, he will admit patient. Patient currently sitting comfortably. She is not in any pain or respiratory distress. Discussed all lab work, pending results, and the reason for admission. Patient expressed understanding and agree with plan. Patient was stable at time of discharge. Critical care attestation.: If time is entered above; I have spent that time in minutes in the direct care of this critically ill patient, excluding procedure time. ED Disposition Clinical Impression: Chest pain, Upper back pain on left side, Elevated d-dimer Disposition: 04 [facility] Is pt being admited?: Yes Condition: Stable Referrals: PRIMARY CARE, [Primary Care Provider] - 3-5 Days
--- NOTE | 2021-04-14 16:01 | XRay Report ---
CHEST 2 VIEWS INDICATION / CLINICAL INFORMATION: chest pain. COMPARISON: 05/18/2019 FINDINGS: SUPPORT DEVICES: None. HEART / MEDIASTINUM: No significant abnormality. LUNGS / PLEURA: No significant pulmonary or pleural abnormality. No pneumothorax. ADDITIONAL FINDINGS: No significant additional findings. IMPRESSION: 1. No acute findings. Signer Name: Jaime Ku MD Signed: 04/14/2021 3:57 PM Workstation Name: [id number]
[2021-04-14 16:09] LABS: Hematocrit 42.5 % (30.3-42.9); Hemoglobin 14.4 gm/dl (10.1-14.3); Mean Corpuscular HGB Conc 34 % (30-34); Mean Corpuscular Volume 89 fl (79-97); Platelet Count 215 K/mm3 (140-440); Red Blood Count 4.78 M/mm3 (3.65-5.03); Red Cell Distribution Width 13.8 % (13.2-15.2)
[2021-04-14 16:14] LABS: Alanine Aminotransferase 36 units/L (7-56); Albumin 4.1 g/dL (3.9-5); BUN/Creatinine Ratio 19; Blood Urea Nitrogen 15 mg/dL (7-17); Calcium 9.4 mg/dL (8.4-10.2); Hemolysis Index 7
[2021-04-14 18:18] LABS: Band Neutrophils # (Manual) 0.1 K/mm3; Total Cells Counted 100
[2021-04-14 18:19] LABS: Anisocytosis 1+
--- NOTE | 2021-04-14 19:50 | Nuclear Medicine Report ---
NUCLEAR MEDICINE PERFUSION LUNG SCAN INDICATION / CLINICAL INFORMATION: cp/sob. TECHNIQUE: 5.5 mCi of Tc-99m MAA were given by IV. COMPARISON: Chest radiograph dated same day. FINDINGS: PERFUSION: No significant perfusion defects. ADDITIONAL FINDINGS: None. IMPRESSION: 1. Low probability for pulmonary embolism. Signer Name: Jaime Ku MD Signed: 04/14/2021 7:46 PM Workstation Name: [id number]
[2021-04-15] MEDS ORDERED: MORPHINE 2 MG/1 ML INJ IV ONE (00:14)
[2021-04-15] MEDS ORDERED: traMADol 50 MG TAB PO PRN (05:56)
[2021-04-15] MEDS ORDERED: ACETAMINOPHEN 325 MG TAB PO PRN (05:57)
[2021-04-15] MEDS ORDERED: METOCLOPRAMIDE 10 MG/2 ML INJ IV PRN (05:57)
[2021-04-15] MEDS ORDERED: oxyCODONE /ACETAMINOPHEN 5-325MG TAB PO PRN (05:57)
[2021-04-15] MEDS ORDERED: ONDANSETRON 4 MG/2 ML INJ IV PRN (05:57)
--- NOTE | 2021-04-15 05:57 | History and Physical Report ---
History of Present Illness Date of examination: 04/14/21 Date of admission: 04/15/21 01:07 Chief complaint: Chest pain for 2 days History of present illness: 55-year-old female with history of hypertension: Diabetes, depression and cancer diagnosed in 2017 and status post chemotherapy and radiation therapy comes in for chest pain since 2 days. Chest pain is retrosternal. No diaphoresis or no shortness of breath. Chest pain is intermittent in nature. Chest pain is about 5 on a scale of 1-10. No shortness of breath. She feels her dialysis somebody sitting on her heart. Her cancer is in remission. No exacerbating or relieving factors. No history of DVT. Heart Score - HEART Score History: Moderately suspicious EKG: Normal Age: 45-65 Risk factors: > 3 risk factors or hx of atherosclerotic disease Troponin: < normal limit HEART Score: 4 - EKG Read Time Time EKG Completed: 14:49 EKG Read Time: 14:56 - Past Medical History --Hypertension: Yes --Psychiatric Treatment: Yes (anxiety) --Additional medical history: anal cancer; high cholesterol - Surgical History Past Surgical History?: Yes Hx Appendectomy: Yes (1978) Hx Breast Surgery: Yes (1996) Additional Surgical History: ; knee surgery to left knee 2000; rotator cuff surgery left arm. anal surgery - Social History Smoking Status: Former Smoker Substance Use Type: Alcohol Family history Htn - Medications Home Medications: Home Medications Medication Instructions Recorded Confirmed Last Taken Type Diclofenac Sodium 75 mg PO BID PRN #14 tablet. 05/18/19 Unknown Rx FLUoxetine HCL [PROzac] 40 mg PO QDAY 05/18/19 05/18/19 05/17/19 History Simvastatin 40 mg PO QDAY 05/18/19 05/18/19 05/17/19 History hydroCHLOROthiazide [HCTZ] 25 mg PO QDAY 05/18/19 05/18/19 05/17/19 History Amoxicillin/Potassium Clav 1 each PO BID 7 Days #14 tablet 07/22/19 Unknown Rx [Augmentin 875-125 Tablet] Fluconazole (Nf) [Diflucan TAB] 150 mg PO ONCE #1 tablet 07/22/19 Unknown Rx Ibuprofen [Motrin 800 MG tab] 800 mg PO Q8HR PRN #21 tablet 07/22/19 Unknown Rx Mupirocin [Bactroban 2% OINT] 1 applic TP TID 10 Days #1 tube 07/22/19 Unknown Rx traMADoL [Ultram 50 MG tab] 50 mg PO Q6HR PRN #10 tablet 07/22/19 Unknown Rx Review of Systems ROS: Stated complaint: CHEST PAINS,NAUSEA,TIGHTNESS TINGLING Other details as noted in HPI Comment: All other systems reviewed and negative Constitutional: denies: chills, fever Eyes: denies: eye pain, eye discharge, vision change ENT: denies: ear pain, throat pain Respiratory: cough (dry), shortness of breath. denies: wheezing Cardiovascular: denies: chest pain, palpitations Endocrine: no symptoms reported Gastrointestinal: denies: abdominal pain, nausea, vomiting, diarrhea, constipation, hematemesis, melena, hematochezia Genitourinary: denies: urgency, dysuria, frequency, hematuria, discharge, abnormal menses, dyspareunia Musculoskeletal: back pain. denies: joint swelling, arthralgia, myalgia Skin: denies: rash, lesions, change in color, change in hair/nails, pruritus Neurological: denies: headache, weakness, numbness, paresthesias, confusion, abnormal gait, vertigo Psychiatric: denies: anxiety, depression, auditory hallucinations, visual hallucinations, homicidal thoughts, suicidal thoughts Hematological/Lymphatic: denies: easy bleeding, easy bruising, swollen glands Medications and Allergies Allergies Allergy/AdvReac Type Severity Reaction Status Date / Time iodine Allergy Anaphylaxis Verified 06/11/17 03:14 Home Medications Medication Instructions Recorded Confirmed Last Taken Type Diclofenac Sodium 75 mg PO BID PRN #14 tablet. 05/18/19 Unknown Rx FLUoxetine HCL [PROzac] 40 mg PO QDAY 05/18/19 05/18/19 05/17/19 History Simvastatin 40 mg PO QDAY 05/18/19 05/18/19 05/17/19 History hydroCHLOROthiazide [HCTZ] 25 mg PO QDAY 05/18/19 05/18/19 05/17/19 History Amoxicillin/Potassium Clav 1 each PO BID 7 Days #14 tablet 07/22/19 Unknown Rx [Augmentin 875-125 Tablet] Fluconazole (Nf) [Diflucan TAB] 150 mg PO ONCE #1 tablet 07/22/19 Unknown Rx Ibuprofen [Motrin 800 MG tab] 800 mg PO Q8HR PRN #21 tablet 07/22/19 Unknown Rx Mupirocin [Bactroban 2% OINT] 1 applic TP TID 10 Days #1 tube 07/22/19 Unknown Rx traMADoL [Ultram 50 MG tab] 50 mg PO Q6HR PRN #10 tablet 07/22/19 Unknown Rx Exam - Constitutional Vitals: Temp Pulse Resp BP Pulse Ox 98.6 F 59 L 15 139/75 97 04/14/21 18:33 04/15/21 03:01 04/15/21 03:01 04/15/21 03:01 04/15/21 03:01 General appearance: Present: no acute distress, well-nourished - EENT Eyes: Present: PERRL ENT: hearing intact, clear oral mucosa - Neck Neck: Present: supple, normal ROM - Respiratory Respiratory effort: normal Respiratory: bilateral: CTA - Cardiovascular Rhythm: regular Heart Sounds: Present: S1 & S2. Absent: rub, click - Extremities Extremities: pulses symmetrical, No edema Peripheral Pulses: within normal limits - Abdominal General gastrointestinal: Present: soft, non-tender, non-distended, normal bowel sounds Female genitourinary: Present: normal - Integumentary Integumentary: Present: clear, warm, dry - Musculoskeletal Musculoskeletal: gait normal, strength equal bilaterally - Psychiatric Psychiatric: appropriate mood/affect, intact judgment & insight - Neurologic Neurologic: CNII-XII intact, moves all extremities HEART Score - HEART Score EKG: Normal Age: 45-65 Risk factors: > 3 risk factors or hx of atherosclerotic disease Troponin: Troponin T < 0.010 ng/mL (0.00-0.029) 04/14/21 18:35 Troponin: < normal limit Results - Labs CBC & Chem 7: 04/15/21 06:47 04/15/21 06:47 Labs: Laboratory Last Values WBC 6.4 K/mm3 (4.5-11.0) 04/14/21 15:30 RBC 4.78 M/mm3 (3.65-5.03) 04/14/21 15:30 Hgb 14.4 gm/dl (10.1-14.3) H 04/14/21 15:30 Hct 42.5 % (30.3-42.9) 04/14/21 15:30 MCV 89 fl (79-97) 04/14/21 15:30 MCH 30 pg (28-32) 04/14/21 15:30 MCHC 34 % (30-34) 04/14/21 15:30 RDW 13.8 % (13.2-15.2) 04/14/21 15:30 Plt Count 215 K/mm3 (140-440) 04/14/21 15:30 Add Manual Diff Complete 04/14/21 15:30 Total Counted 100 04/14/21 15:30 Seg Neuts % (Manual) 52.0 % (40.0-70.0) 04/14/21 15:30 Band Neutrophils % 1.0 % 04/14/21 15:30 Lymphocytes % (Manual) 25.0 % (13.4-35.0) 04/14/21 15:30 Monocytes % (Manual) 17.0 % (0.0-7.3) H 04/14/21 15:30 Eosinophils % (Manual) 5.0 % (0.0-4.3) H 04/14/21 15:30 Nucleated RBC % Not Reportable 04/14/21 15:30 Seg Neutrophils # Man 3.3 K/mm3 (1.8-7.7) 04/14/21 15:30 Band Neutrophils # 0.1 K/mm3 04/14/21 15:30 Lymphocytes # (Manual) 1.6 K/mm3 (1.2-5.4) 04/14/21 15:30 Abs React Lymphs (Man) 0.0 K/mm3 04/14/21 15:30 Monocytes # (Manual) 1.1 K/mm3 (0.0-0.8) H 04/14/21 15:30 Eosinophils # (Manual) 0.3 K/mm3 (0.0-0.4) 04/14/21 15:30 Basophils # (Manual) 0.0 K/mm3 (0.0-0.1) 04/14/21 15:30 Metamyelocytes # 0.0 K/mm3 04/14/21 15:30 Myelocytes # 0.0 K/mm3 04/14/21 15:30 Promyelocytes # 0.0 K/mm3 04/14/21 15:30 Blast Cells # 0.0 K/mm3 04/14/21 15:30 WBC Morphology Not Reportable 04/14/21 15:30 WBC Morphology TNR 04/14/21 15:30 Hypersegmented Neuts Not Reportable 04/14/21 15:30 Hyposegmented Neuts Not Reportable 04/14/21 15:30 Hypogranular Neuts Not Reportable 04/14/21 15:30 Smudge Cells Not Reportable 04/14/21 15:30 Toxic Granulation Not Reportable 04/14/21 15:30 Toxic Vacuolation Not Reportable 04/14/21 15:30 Dohle Bodies Not Reportable 04/14/21 15:30 Pelger-Huet Anomaly Not Reportable 04/14/21 15:30 Lena Rods Not Reportable 04/14/21 15:30 Platelet Estimate Not Reportable 04/14/21 15:30 Clumped Platelets Not Reportable 04/14/21 15:30 Plt Clumps, EDTA Not Reportable 04/14/21 15:30 Large Platelets Not Reportable 04/14/21 15:30 Giant Platelets Not Reportable 04/14/21 15:30 Platelet Satelliting Not Reportable 04/14/21 15:30 Plt Morphology Comment Not Reportable 04/14/21 15:30 RBC Morphology Not Reportable 04/14/21 15:30 Dimorphic RBCs Not Reportable 04/14/21 15:30 Polychromasia Not Reportable 04/14/21 15:30 Hypochromasia Not Reportable 04/14/21 15:30 Poikilocytosis Not Reportable 04/14/21 15:30 Anisocytosis 1+ 04/14/21 15:30 Microcytosis Not Reportable 04/14/21 15:30 Macrocytosis Not Reportable 04/14/21 15:30 Spherocytes Not Reportable 04/14/21 15:30 Pappenheimer Bodies Not Reportable 04/14/21 15:30 Sickle Cells Not Reportable 04/14/21 15:30 Target Cells Not Reportable 04/14/21 15:30 Tear Drop Cells Not Reportable 04/14/21 15:30 Ovalocytes Not Reportable 04/14/21 15:30 Helmet Cells Not Reportable 04/14/21 15:30 Briscoe-Crouse Bodies Not Reportable 04/14/21 15:30 Ulysses Rings Not Reportable 04/14/21 15:30 Mallorie Cells Not Reportable 04/14/21 15:30 Bite Cells Not Reportable 04/14/21 15:30 Crenated Cell Not Reportable 04/14/21 15:30 Elliptocytes Not Reportable 04/14/21 15:30 Acanthocytes (Spur) Not Reportable 04/14/21 15:30 Rouleaux Not Reportable 04/14/21 15:30 Hemoglobin C Crystals Not Reportable 04/14/21 15:30 Schistocytes Not Reportable 04/14/21 15:30 Malaria parasites Not Reportable 04/14/21 15:30 Bobo Bodies Not Reportable 04/14/21 15:30 Hem Pathologist Commnt No 04/14/21 15:30 D-Dimer 715.19 ng/mlDDU (0-234) H 04/14/21 15:30 Sodium 140 mmol/L (137-145) 04/14/21 15:30 Potassium 3.9 mmol/L (3.6-5.0) 04/14/21 15:30 Chloride 106.5 mmol/L (98-107) 04/14/21 15:30 Carbon Dioxide 19 mmol/L (22-30) L 04/14/21 15:30 Anion Gap 18 mmol/L 04/14/21 15:30 BUN 15 mg/dL (7-17) 04/14/21 15:30 Creatinine 0.8 mg/dL (0.6-1.2) 04/14/21 15:30 Estimated GFR > 60 ml/min 04/14/21 15:30 BUN/Creatinine Ratio 19 % 04/14/21 15:30 Glucose 159 mg/dL (65-100) H 04/14/21 15:30 Calcium 9.4 mg/dL (8.4-10.2) 04/14/21 15:30 Total Bilirubin 0.50 mg/dL (0.1-1.2) 04/14/21 15:30 AST 43 units/L (5-40) H 04/14/21 15:30 ALT 36 units/L (7-56) 04/14/21 15:30 Alkaline Phosphatase 84 units/L (35-129) 04/14/21 15:30 Troponin T < 0.010 ng/mL (0.00-0.029) 04/14/21 18:35 Total Protein 7.8 g/dL (6.3-8.2) 04/14/21 15:30 Albumin 4.1 g/dL (3.9-5) 04/14/21 15:30 Albumin/Globulin Ratio 1.1 % 04/14/21 15:30 Short CBC 04/14/21 04/15/21 Range/Units 15:30 06:47 WBC 6.4 5.5 (4.5-11.0) K/mm3 Hgb 14.4 H 13.7 (10.1-14.3) gm/dl Hct 42.5 39.6 (30.3-42.9) % Plt Count 215 176 (140-440) K/mm3 BMP 04/14/21 04/15/21 15:30 06:47 Sodium 140 141 Potassium 3.9 4.0 Chloride 106.5 105.7 Carbon Dioxide 19 L 26 D BUN 15 15 Creatinine 0.8 0.8 Glucose 159 H 170 H Calcium 9.4 9.1 Cardiac Enzymes 04/14/21 04/14/21 04/15/21 Range/Units 15:30 18:35 06:47 Total Creatine Kinase 122 (30-135) units/L CK-MB (CK-2) 1.9 (0.0-4.0) ng/mL Troponin T < 0.010 < 0.010 < 0.010 (0.00-0.029) ng/mL Liver Function 04/14/21 04/15/21 Range/Units 15:30 06:47 Total Bilirubin 0.50 0.40 (0.1-1.2) mg/dL AST 43 H 37 (5-40) units/L ALT 36 32 (7-56) units/L Alkaline Phosphatase 84 81 (35-129) units/L Albumin 4.1 3.9 (3.9-5) g/dL - Imaging and Cardiology EKG: report reviewed (Sinus rhythm no acute ST-T wave changes) Chest x-ray: report reviewed (No acute findings) Assessment and Plan - Patient Problems (1) Acute coronary syndrome Current Visit: Yes Status: Acute Plan to address problem: Serial troponins and CK-MBs No Lexiscan available on Saturdays and Sundays We will try to arrange for outpatient stress test if troponins and CK-MBs are negative Also defer to cardiology regarding discharge (2) Depression Current Visit: Yes Status: Chronic Qualifiers: Depression Type: unspecified Qualified Code(s): F32.9 - Major depressive disorder, single episode, unspecified Plan to address problem: Continue antidepressants (3) Hyperlipidemia Current Visit: Yes Status: Chronic Qualifiers: Hyperlipidemia type: mixed hyperlipidemia Qualified Code(s): E78.2 - Mixed hyperlipidemia Plan to address problem: Continue statins (4) Arthritis Current Visit: Yes Status: Chronic Plan to address problem: Continue NSAIDS prn (5) DVT prophylaxis Current Visit: Yes Status: Acute Plan to address problem: On heparin and GI prophylaxis
[2021-04-15 06:56] LABS: Basophils % (Auto) 0.8 % (0.0-1.8); Eosinophils # (Auto) 0.3 K/mm3 (0.0-0.4); Eosinophils % (Auto) 5.8 % (0.0-4.3); Hematocrit 39.6 % (30.3-42.9); Hemoglobin 13.7 gm/dl (10.1-14.3); Lymphocytes # (Auto) 2.3 K/mm3 (1.2-5.4); Lymphocytes % (Auto) 41.7 % (13.4-35.0); Mean Corpuscular HGB Conc 35 % (30-34); Mean Corpuscular Volume 90 fl (79-97); Monocytes # (Auto) 0.6 K/mm3 (0.0-0.8); Monocytes % (Auto) 11.5 % (0.0-7.3); Platelet Count 176 K/mm3 (140-440); Red Blood Count 4.39 M/mm3 (3.65-5.03)
[2021-04-15] MEDS: HYDROmorphone 1 MG/1 ML INJ IV PRN ×2 (07:01→21:33)
[2021-04-15 07:20] LABS: Creatine Kinase MB 1.9 ng/mL (0.0-4.0)
[2021-04-15 07:23] LABS: Alanine Aminotransferase 32 units/L (7-56); Albumin 3.9 g/dL (3.9-5); BUN/Creatinine Ratio 19; Blood Urea Nitrogen 15 mg/dL (7-17); Calcium 9.1 mg/dL (8.4-10.2); Hemolysis Index 2
[2021-04-15] MEDS ORDERED: NON-FORMULARY EACH (Simvastatin [Simvastatin] 40 MG Tablet) PO SCH (10:00)
[2021-04-15] MEDS ORDERED: NON-FORMULARY EACH (Fluoxetine Hcl [Prozac] 40 MG Capsule) PO SCH (10:00)
[2021-04-15] MEDS: PRAVASTATIN 80 MG TAB PO SCH (11:00)
[2021-04-15] MEDS: hydroCHLOROthiazide 25 MG TAB PO SCH (11:00)
[2021-04-15] MEDS: HEPARIN 5,000 UNIT/1 ML VIAL SUB-Q SCH ×2 (11:00→21:15)
[2021-04-15] MEDS: FLUoxetine 20 MG CAP PO SCH (11:00)
[2021-04-15] MEDS: FAMOTIDINE 20 MG/2 ML INJ IV SCH ×2 (11:00→21:15)
--- NOTE | 2021-04-15 13:47 | Consultation ---
History of Present Illness Consult date: 04/15/21 Consult reason: chest pain History of present illness: 65-year-old female with past medical history of hypertension, diabetes, anal c ancer status post chemotherapy and radiation in remission since September 2017 presents with chest pain. Patient reports on and off, substernal chest pain since . Feels as if someone is sitting on her chest. Symptoms are worse with activity but no association with food. She denies any shortness of breath. At present, she continues to have chest discomfort. Work-up notable for troponin x3 negative and elevated D-dimer. EKG showed ectopic atrial rhythm but without any acute ischemic changes. VQ scan low probability for PE. Past History Past Medical History: diabetes, hypertension Social history: denies: smoking, alcohol abuse Medications and Allergies Allergies Allergy/AdvReac Type Severity Reaction Status Date / Time iodine Allergy Anaphylaxis Verified 06/11/17 03:14 Home Medications Medication Instructions Recorded Confirmed Last Taken Type Diclofenac Sodium 75 mg PO BID PRN #14 tablet. 05/18/19 Unknown Rx FLUoxetine HCL [PROzac] 40 mg PO QDAY 05/18/19 05/18/19 05/17/19 History Simvastatin 40 mg PO QDAY 05/18/19 05/18/19 05/17/19 History hydroCHLOROthiazide [HCTZ] 25 mg PO QDAY 05/18/19 05/18/19 05/17/19 History Amoxicillin/Potassium Clav 1 each PO BID 7 Days #14 tablet 07/22/19 Unknown Rx [Augmentin 875-125 Tablet] Fluconazole (Nf) [Diflucan TAB] 150 mg PO ONCE #1 tablet 07/22/19 Unknown Rx Ibuprofen [Motrin 800 MG tab] 800 mg PO Q8HR PRN #21 tablet 07/22/19 Unknown Rx Mupirocin [Bactroban 2% OINT] 1 applic TP TID 10 Days #1 tube 07/22/19 Unknown Rx traMADoL [Ultram 50 MG tab] 50 mg PO Q6HR PRN #10 tablet 07/22/19 Unknown Rx Active Meds: Active Medications Acetaminophen (Acetaminophen 325 Mg Tab) 650 mg PO Q4H PRN PRN Reason: Pain MILD(1-3)/Fever >100.5/ORTIZ Famotidine (Famotidine 20 Mg/2 Ml Inj) 20 mg IV BID JASWINDER Last Admin: 04/15/21 11:00 Dose: 20 mg Documented by: Fluoxetine HCl (Fluoxetine 20 Mg Cap) 40 mg PO QDAY [facility] Last Admin: 04/15/21 11:00 Dose: 40 mg Documented by: Heparin Sodium (Porcine) (Heparin 5,000 Unit/1 Ml Vial) 5,000 unit SUB-Q Q12HR [facility] Last Admin: 04/15/21 11:00 Dose: 5,000 unit Documented by: Hydrochlorothiazide (Hydrochlorothiazide 25 Mg Tab) 25 mg PO QDAY [facility] Last Admin: 04/15/21 11:00 Dose: 25 mg Documented by: Hydromorphone HCl (Hydromorphone 1 Mg/1 Ml Inj) 0.5 mg IV Q3H PRN PRN Reason: Pain , Severe (7-10) Last Admin: 04/15/21 07:01 Dose: 0.5 mg Documented by: Metoclopramide HCl (Metoclopramide 10 Mg/2 Ml Inj) 10 mg IV Q6H PRN PRN Reason: Nausea And Vomiting Ondansetron HCl (Ondansetron 4 Mg/2 Ml Inj) 4 mg IV Q8H PRN PRN Reason: Nausea And Vomiting Oxycodone/Acetaminophen (Oxycodone /Acetaminophen 5-325mg Tab) 1 tab PO Q6H PRN PRN Reason: Pain, Moderate (4-6) Pravastatin Sodium (Pravastatin 80 Mg Tab) 80 mg PO DAILY [facility] Last Admin: 04/15/21 11:00 Dose: 80 mg Documented by: Sodium Chloride (Sodium Chloride 0.9% 10 Ml Flush Syringe) 10 ml IV BID [facility] Last Admin: 04/15/21 11:00 Dose: 10 ml Documented by: Sodium Chloride (Sodium Chloride 0.9% 10 Ml Flush Syringe) 10 ml IV PRN PRN PRN Reason: LINE FLUSH Tramadol HCl (Tramadol 50 Mg Tab) 50 mg PO Q6HR PRN PRN Reason: Pain, Moderate (4-6) Physical Examination Vital Signs Temp Pulse Resp BP Pulse Ox 97.4 F L 76 24 133/79 83 L 04/14/21 14:55 04/14/21 14:55 04/14/21 14:55 04/14/21 14:55 04/14/21 14:55 Narrative exam: Gen-NAD, comfortable Neck-supple, no JVD CV-RRR, no murmurs Lungs-CTAB, on room air Abd-soft/nt/nd, obese Ext-warm to touch, no edema Neuro-alert and oriented, no gross focal deficits Psych-affect normal Results 04/15/21 06:47 04/15/21 06:47 Cardiac Enzymes 04/14/21 04/15/21 04/15/21 Range/Units 15:30 06:47 06:47 AST 43 H 37 (5-40) units/L CK-MB (CK-2) 1.9 (0.0-4.0) ng/mL CBC 04/14/21 04/15/21 Range/Units 15:30 06:47 WBC 6.4 5.5 (4.5-11.0) K/mm3 RBC 4.78 4.39 (3.65-5.03) M/mm3 Hgb 14.4 H 13.7 (10.1-14.3) gm/dl Hct 42.5 39.6 (30.3-42.9) % Plt Count 215 176 (140-440) K/mm3 Lymph # (Auto) 2.3 (1.2-5.4) K/mm3 Waller # (Auto) 0.6 (0.0-0.8) K/mm3 Eos # (Auto) 0.3 (0.0-0.4) K/mm3 Baso # (Auto) 0.0 (0.0-0.1) K/mm3 Comprehensive Metabolic Panel 04/14/21 04/15/21 Range/Units 15:30 06:47 Sodium 140 141 (137-145) mmol/L Potassium 3.9 4.0 (3.6-5.0) mmol/L Chloride 106.5 105.7 (98-107) mmol/L Carbon Dioxide 19 L 26 D (22-30) mmol/L BUN 15 15 (7-17) mg/dL Creatinine 0.8 0.8 (0.6-1.2) mg/dL Glucose 159 H 170 H (65-100) mg/dL Calcium 9.4 9.1 (8.4-10.2) mg/dL AST 43 H 37 (5-40) units/L ALT 36 32 (7-56) units/L Alkaline Phosphatase 84 81 (35-129) units/L Total Protein 7.8 6.9 (6.3-8.2) g/dL Albumin 4.1 3.9 (3.9-5) g/dL 04/14/2021 EKGectopic atrial rhythm, no ischemic changes Assessment and Plan #Chest pain #Hypertension - BP elevated #Diabetes #History of anal cancer status post chemotherapy and XRT, in remission since 09/2017 #Obesity Check echo. Given persistent chest discomfort, will proceed with Lexiscan stress test tomorrow. Please keep n.p.o. at midnight. We will start nitro SL as needed for chest pain.
[2021-04-15] MEDS ORDERED: NITROGLYCERIN 0.4 MG TAB SUBL SL PRN (13:52)
[2021-04-15 16:06] LABS: Creatine Kinase MB 1.9 ng/mL (0.0-4.0)
--- NOTE | 2021-04-15 17:19 | Progress Note ---
Assessment and Plan - Patient Problems (1) Acute coronary syndrome Current Visit: Yes Status: Acute Plan to address problem: Lexiscan in the morning Troponins and CK-MB are negative (2) Depression Current Visit: Yes Status: Chronic Qualifiers: Depression Type: unspecified Qualified Code(s): F32.9 - Major depressive disorder, single episode, unspecified Plan to address problem: Continue antidepressants (3) Hyperlipidemia Current Visit: Yes Status: Chronic Qualifiers: Hyperlipidemia type: mixed hyperlipidemia Qualified Code(s): E78.2 - Mixed hyperlipidemia Plan to address problem: Continue statins (4) Arthritis Current Visit: Yes Status: Chronic Plan to address problem: Continue NSAIDS prn (5) DVT prophylaxis Current Visit: Yes Status: Acute Plan to address problem: On heparin and GI prophylaxis Subjective Date of service: 04/15/21 Principal diagnosis: Acute coronary syndrome Interval history: 55-year-old female with history of hypertension: Diabetes, depression and cancer diagnosed in 2017 and status post chemotherapy and radiation therapy comes in for chest pain since 2 days. Chest pain is retrosternal. No diaphoresis or no shortness of breath. Chest pain is intermittent in nature. Chest pain is about 5 on a scale of 1-10. No shortness of breath. She feels her dialysis somebody sitting on her heart. Her cancer is in remission. No exacerbating or relieving factors. No history of DVT. 04/15/2021 Chest pain-free Serial enzymes are negative Lexiscan in the morning of 04/16/2021 Objective - Constitutional Vitals: Vital Signs - 12hr 04/15/21 04/15/21 04/15/21 05:31 05:45 06:01 Pulse Rate 57 L 59 L 56 L Respiratory 18 20 17 Rate Blood Pressure 141/82 141/71 137/74 O2 Sat by Pulse 97 97 96 Oximetry 04/15/21 04/15/21 04/15/21 06:15 06:31 06:45 Pulse Rate 59 L 59 L 63 Respiratory 15 15 12 Rate Blood Pressure 141/82 140/75 160/85 O2 Sat by Pulse 97 96 99 Oximetry 04/15/21 04/15/21 04/15/21 07:00 07:01 07:15 Pulse Rate 58 L 58 L Respiratory 17 18 13 Rate Blood Pressure 160/85 151/92 O2 Sat by Pulse 96 97 Oximetry 04/15/21 04/15/2104/15/21 07:31 07:45 07:55 Pulse Rate 62 63 Respiratory 14 20 Rate Blood Pressure 147/70 160/85 O2 Sat by Pulse 97 96 97 Oximetry 04/15/21 04/15/21 04/15/21 08:01 08:15 08:31 Pulse Rate 59 L 59 L 67 Respiratory 17 13 17 Rate Blood Pressure 148/76 148/71 160/91 O2 Sat by Pulse 97 96 96 Oximetry 04/15/21 04/15/21 04/15/21 08:45 09:01 09:15 Pulse Rate 65 63 65 Respiratory 13 15 10 L Rate Blood Pressure 160/91 160/91 160/91 O2 Sat by Pulse 95 95 98 Oximetry 04/15/21 04/15/21 04/15/21 09:31 09:45 10:01 Pulse Rate 64 64 64 Respiratory 17 15 16 Rate Blood Pressure 160/91 160/91 160/91 O2 Sat by Pulse 96 95 97 Oximetry General appearance: Present: no acute distress, well-nourished - EENT Eyes: PERRL, EOM intact ENT: hearing intact, clear oral mucosa Ears: bilateral: normal - Neck Neck: supple, normal ROM - Respiratory Respiratory effort: normal Respiratory: bilateral: CTA - Breasts Breasts: normal - Cardiovascular Heart rate: 78 Rhythm: regular Heart Sounds: Present: S1 & S2. Absent: gallop, rub Extremities: pulses intact, No edema, normal color, Full ROM - Gastrointestinal General gastrointestinal: Present: soft, non-tender, non-distended, normal bowel sounds - Genitourinary Female genitourinary: normal - Integumentary Integumentary: clear, warm, dry - Musculoskeletal Musculoskeletal: 1, strength equal bilaterally - Neurologic Neurologic: moves all extremities - Psychiatric Psychiatric: memory intact, appropriate mood/affect, intact judgment & insight - Labs CBC & Chem 7: 04/15/21 06:47 04/15/21 06:47 Labs: Abnormal lab results 04/14/21 04/15/21 04/15/21 Range/Units 15:30 06:47 06:47 MCHC 35 H (30-34) % Lymph % (Auto) 41.7 H (13.4-35.0) % [place] % (Auto) 11.5 H (0.0-7.3) % Eos % (Auto) 5.8 H (0.0-4.3) % Monocytes % (Manual) 17.0 H (0.0-7.3) % Eosinophils % (Manual) 5.0 H (0.0-4.3) % Monocytes # (Manual) 1.1 H (0.0-0.8) K/mm3 Glucose 170 H (65-100) mg/dL Hemoglobin A1c (4-6) % 04/15/21 Range/Units 06:47 MCHC (30-34) % Lymph % (Auto) (13.4-35.0) % Hudson % (Auto) (0.0-7.3) % Eos % (Auto) (0.0-4.3) % Monocytes % (Manual) (0.0-7.3) % Eosinophils % (Manual) (0.0-4.3) % Monocytes # (Manual) (0.0-0.8) K/mm3 Glucose (65-100) mg/dL Hemoglobin A1c 8.0 H (4-6) % HEART Score - HEART Score EKG: Normal Age: 45-65 Risk factors: > 3 risk factors or hx of atherosclerotic disease Troponin: Troponin T < 0.010 ng/mL (0.00-0.029) 04/15/21 14:40 Troponin: < normal limit
[2021-04-15 18:50] LABS: Creatine Kinase MB 1.8 ng/mL (0.0-4.0)
[2021-04-16] MEDS ORDERED: REGADENOSON 0.4 MG/5 ML INJ IV ONE (07:38)
[2021-04-16] MEDS: FAMOTIDINE 20 MG/2 ML INJ IV SCH (11:18)
[2021-04-16] MEDS: hydroCHLOROthiazide 25 MG TAB PO SCH (11:18)
[2021-04-16] MEDS: FLUoxetine 20 MG CAP PO SCH (11:19)
[2021-04-16 11:34] VITALS: BP 81/54
[2021-04-16] MEDS: HEPARIN 5,000 UNIT/1 ML VIAL SUB-Q SCH (11:36)
[2021-04-16] MEDS: PRAVASTATIN 80 MG TAB PO SCH (11:36)
--- NOTE | 2021-04-16 13:12 | Event Note ---
Date: 04/16/21 Patient underwent a Lexiscan thallium stress test today, results are pending.
--- NOTE | 2021-04-16 14:47 | Nuclear Medicine Report ---
APPROVED REPORT Exam: Nuclear Stress Test Indication: Chest pain BMI: 0 Stress Test Details HR Max Heart Rate (APMHR): 157 bpm Target HR (85% APMHR): 133 bpm BP ECG Resting ECG: Sinus Rhythm Stress ECG: Sinus Rhythm ST Change: None Arrhythmia: None Recovery ECG: Sinus Rhythm Recovery ST Change: None Recovery Arrhythmia: None Stress ECG Conclusion No chest pain and no ST changes with pharmacologic stress, bicarb perfusion images are pending for final test interpretation. NM EXAM: Myocardial Perfusion REST/STRESS Imaging Protocol: Rest Tc-99m/Stress Tc-99m 1 day Resting Data Rest SPECT myocardial perfusion imaging was performed in supine position 45 minutes following the intravenous injection of 10 mCi of Tc-99m Myoview. Time of rest injection: 0720 Pharmacologic Stress Pharmacologic stress test was performed by injecting Regadenoson 0.4 mg IV push followed by the intravenous injection of 28 mCi of Tc-99m Myoview. Time of stress injection: 0946 Gated Stress SPECT was performed 30 minutes after stress injection. The images were gated to evaluate regional wall motion and calculate left ventricular ejection fraction. Study Quality Study: excellent Lung Uptake: Normal Study Data TID = 1.01. Perfusion Wall Motion The rest and stress images show normal left ventricular wall motion. Paradoxical septal motion due to pacing from the right ventricle. Nuclear Conclusion ECG Findings: negative for ischemia Clinical Findings: negative for ischemia Nuclear Findings: negative for ischemia Left Ventricular Function: normal Risk Study: low Normal rest and stress perfusion scan, normal left ventricular systolic function, ejection fraction 70%. Normal study. Conclusion No chest pain and no ST changes with pharmacologic stress, bicarb perfusion images are pending for final test interpretation.
--- NOTE | 2021-04-16 16:20 | Discharge Summary ---
Providers - Providers Date of Admission: 04/15/21 01:07 Date of discharge: 04/16/21 Attending physician: JAZLYN GRIER 04/15/21 05:57 Consult to Physician [CONS] Routine Comment: Consulting Provider: KATIE TOSCANO Physician Instructions: Reason For Exam: ACS Primary care physician: [employer] Hospitalization Condition: Stable Hospital course: 55-year-old female with history of hypertension: Diabetes, depression and cancer diagnosed in 2017 and status post chemotherapy and radiation therapy comes in for chest pain since 2 days. Chest pain is retrosternal. No diaphoresis or no shortness of breath. Chest pain is intermittent in nature. Chest pain is about 5 on a scale of 1-10. No shortness of breath. She feels her dialysis somebody sitting on her heart. Her cancer is in remission. No exacerbating or relieving factors. No history of DVT. Assessment and Plan - Patient Problems (1) Acute coronary syndrome Current Visit: Yes Status: Acute Plan to address problem: Normal stress thallium today (2) Depression Current Visit: Yes Status: Chronic Qualifiers: Depression Type: unspecified Qualified Code(s): F32.9 - Major depressive disorder, single episode, unspecified Plan to address problem: Continue antidepressants (3) Hyperlipidemia Current Visit: Yes Status: Chronic Qualifiers: Hyperlipidemia type: mixed hyperlipidemia Qualified Code(s): E78.2 - Mixed hyperlipidemia Plan to address problem: Continue statins (4) Arthritis Current Visit: Yes Status: Chronic Plan to address problem: Continue NSAIDS prn Disposition: 01 HOME / SELF CARE / HOMELESS Final Discharge Diagnosis (Prints w/discharge instructions): Acute coronary syndrome. depression. Arthritis. Hyperlipidemia Time spent for discharge: 32 minutes - Discharge Diagnoses (1) Acute coronary syndrome Status: Acute (2) Depression Status: Chronic Qualifiers: Depression Type: unspecified Qualified Code(s): F32.A - Depression, unspecified (3) Hyperlipidemia Status: Chronic Qualifiers: Hyperlipidemia type: mixed hyperlipidemia Qualified Code(s): E78.2 - Mixed hyperlipidemia (4) Arthritis Status: Chronic (5) DVT prophylaxis Status: Acute Core Measure Documentation - Palliative Care Palliative Care/ Comfort Measures: Not Applicable - Core Measures Any of the following diagnoses?: none Exam - Constitutional Vitals: Temp Pulse Resp BP Pulse Ox 98.6 F 77 18 81/54 96 04/14/21 18:33 04/16/21 09:33 04/16/21 06:30 04/16/21 06:30 04/16/21 06:30 General appearance: Present: no acute distress, well-nourished - EENT Eyes: Present: PERRL ENT: hearing intact, clear oral mucosa - Neck Neck: Present: supple, normal ROM - Respiratory Respiratory effort: normal Respiratory: bilateral: CTA - Cardiovascular Heart rate: 78 Rhythm: regular Heart Sounds: Present: S1 & S2. Absent: rub, click - Extremities Extremities: pulses symmetrical, No edema Peripheral Pulses: within normal limits - Abdominal General gastrointestinal: Present: soft, non-tender, non-distended, normal bowel sounds Female genitourinary: Present: normal - Integumentary Integumentary: Present: clear, warm, dry - Musculoskeletal Musculoskeletal: gait normal, strength equal bilaterally - Psychiatric Psychiatric: appropriate mood/affect, intact judgment & insight - Neurologic Neurologic: CNII-XII intact, moves all extremities Plan Activity: no restrictions Diet: low fat, low salt Follow up with: PRIMARY CARE, [Primary Care Provider] - 3-5 Days Prescriptions: Potassium Chloride [K-Dur] 10 meq PO QDAY #30 tablet
--- NOTE | 2021-04-23 13:50 | Electrocardiograph Report ---
[facility] Test Date: 2021-04-14 Test Time: 14:49:00 Pat Name: KENDRA LR Department: [address] [place] [address] Room: A460 Gender: F Global Sales Director: FELECIA : 1955 Requested By: NOHEMI NARVAEZ Order Number: [id number] Reading MD: Arnaud Askew Measurements Intervals [place] Rate: 75 P: 262 WV: 97 QRS: 3 QRSD: 74 T: 9 QT: 376 QTc: 419 Interpretive Statements Ectopic atrial rhythm No previous ECG available for comparison Electronically Signed On 04-23-2021 13:50:19 EDT by Arnaud Askew
== END 2021-04-16 18:39 | disposition home or self-care (01) | DRG 311 ==
LOC: ED 14:36 → 4A 04-15 01:07
PROVIDERS: ADMIT Internal Medicine; ATTEND Internal Medicine
DX: I24.9 Acute ischemic heart disease, unspecified (principal); F32.9 Major depressive disorder, single episode, unspecified; M19.90 Unspecified osteoarthritis, unspecified site; I10 Essential (primary) hypertension; E11.9 Type 2 diabetes mellitus without complications; F41.9 Anxiety disorder, unspecified; E78.00 Pure hypercholesterolemia, unspecified; Z87.891 Personal history of nicotine dependence; E78.2 Mixed hyperlipidemia; E66.9 Obesity, unspecified; Z88.3 Allergy status to other anti-infective agents; Z90.49 Acquired absence of other specified parts of digestive tract
CPT/HCPCS: 36415; 71046; 78452; 78580; 80053; 82550; 82553; 83036; 84484; 85007; 85025; 85379; 93005; 93017; 93306; G0378; A9502; A9540; J1170; J1644; J2270; J2785

== ENCOUNTER 2021-06-27 15:41 | Emergency (ER) | payer OTHER ==
[2021-06-27 16:18] LABS: Bilirubin,Urine NEG (Negative); Blood,Urine NEG (Negative); Color,Urine Yellow (Yellow); Mucus,Urine FEW /HPF
[2021-06-27] MEDS ORDERED: SODIUM CHLORIDE 0.9% 1000 ML 1,000 ML IV ONE (17:17)
[2021-06-27] MEDS ORDERED: ONDANSETRON 4 MG/2 ML INJ IV ONE (17:17)
[2021-06-27] MEDS ORDERED: HYDROmorphone 1 MG/1 ML INJ IV ONE (17:17)
[2021-06-27 17:56] LABS: Basophils % (Auto) 0.4 % (0.0-1.8); Eosinophils # (Auto) 0.1 K/mm3 (0.0-0.4); Eosinophils % (Auto) 1.3 % (0.0-4.3); Hematocrit 42.8 % (30.3-42.9); Hemoglobin 14.3 gm/dl (10.1-14.3); Lymphocytes # (Auto) 2.4 K/mm3 (1.2-5.4); Lymphocytes % (Auto) 25.9 % (13.4-35.0); Mean Corpuscular HGB Conc 34 % (30-34); Mean Corpuscular Volume 90 fl (79-97); Monocytes # (Auto) 0.8 K/mm3 (0.0-0.8); Monocytes % (Auto) 8.4 % (0.0-7.3); Platelet Count 183 K/mm3 (140-440); Red Blood Count 4.76 M/mm3 (3.65-5.03); Red Cell Distribution Width 14.1 % (13.2-15.2)
[2021-06-27 18:18] LABS: Alanine Aminotransferase 26 units/L (7-56); Albumin 3.8 g/dL (3.9-5); BUN/Creatinine Ratio 11; Bilirubin,Direct < 0.2 mg/dL (0-0.2); Blood Urea Nitrogen 9 mg/dL (7-17); Calcium 9.1 mg/dL (8.4-10.2); Hemolysis Index 20
[2021-06-27] MEDS ORDERED: diphenhydrAMINE 50 MG/ML VIAL IV ONE (19:30)
--- NOTE | 2021-06-27 19:59 | Cat Scan Report ---
CT ABDOMEN AND PELVIS WITHOUT CONTRAST INDICATION: abd pain CONTRAST: Without IV COMPARISON: 02/13/[address] scans at this location are performed using CT dose reduction for ALARA by means of automated e xposure control. NOTE: Resolution is decreased and artifact is introduced by the patient's size. FINDINGS: Mild bibasilar atelectatic changes are seen. No pneumoperitoneum is noted. No significant v entral hernia is seen. Mild fatty infiltration of the liver is noted without obvious focal lesion. Li jerry is mildly enlarged and has a length of 18.5 cm. Spleen is not enlarged. Gallbladder and bile duct s appear within normal limits. No abdominal masses are seen. No urinary tract calculi or evidence of obstruction are noted. No evidence of bowel obstruction is seen. Appendix is not visualized. No infla mmatory changes are seen. No free fluid is noted. No lymphadenopathy is seen. No pelvic masses are no travon. IMPRESSION: No acute abnormalities are seen Signer Name: Zackary Gamez MD Signed: 06/27/2021 7:54 PM Workstation Name: [id number]
--- NOTE | 2021-06-27 20:20 | Emergency Department Report ---
ED Abdominal Pain HPI - General Chief Complaint: Urogenital-Female Stated Complaint: STATES HAS UROSEPSIS Time Seen by Provider: 06/27/21 16:50 Source: patient Mode of arrival: Ambulatory Limitations: No Limitations - History of Present Illness Initial Comments: This is a 65-year-old female nontoxic, well nourished in appearance, no acute signs of distress presents to the ED with c/o of some upper abdominal pain times several days. Patient stated that she is diagnosed with UTI and is currently taking Macrobid and was told to come to the ER for possible urosepsis. When I questioned the patient why they thought she may have urosepsis, patient stated that because in her urine she was told that she has protein. Otherwise patient denies any other symptoms or complaints at this time. Patient stated that her dysuria and UTI symptoms currently has resolved since taking Macrobid. Patient stated she is still currently taking Macrobid. Patient denies any nausea or vomiting. Patient describes abdominal pain as cramping and aching with level of 3/10 primarily in the upper abdomen. Patient denies chest pain, short of breath, fever, hemoptysis, blood in stool, chills, headache, stiff neck, numbness or tingling. Patient denies any diarrhea or constipation. Denies any blood in stool. Patient denies any recent travels. Patient stated allergies to iodine. MD Complaint: abdominal pain -: days(s) Location: diffuse Radiation: none Migration to: no migration Severity: mild Severity scale (0 -10): 3 Quality: cramping Consistency: intermittent Improves With: nothing Worsens With: nothing Associated Symptoms: denies other symptoms. denies: nausea, vomiting, diarrhea, fever, chills, constipation, dysuria, hematemesis, hematochezia, melena, hematuria, anorexia, syncope - Related Data Home Medications Medication Instructions Recorded Confirmed Last Taken FLUoxetine HCL [PROzac] 40 mg PO QDAY 05/18/19 06/27/21 05/17/19 Previous Rx's Medication Instructions Recorded Last Taken Type Ibuprofen [Motrin 800 MG tab] 800 mg PO Q8HR PRN #21 tablet 07/22/19 Unknown Rx Mupirocin [Bactroban 2% OINT] 1 applic TP TID 10 Days #1 tube 07/22/19 Unknown Rx Potassium Chloride [K-Dur] 10 meq PO QDAY #30 tablet 04/16/21 Unknown Rx Pravastatin [Pravachol] 80 mg PO DAILY tablet 04/16/21 Unknown Rx hydroCHLOROthiazide [HCTZ] 25 mg PO QDAY tablet 04/16/21 Unknown Rx traMADoL [Ultram 50 MG tab] 50 mg PO Q6HR PRN tablet 04/16/21 Unknown Rx Dicyclomine [Bentyl] 10 mg PO Q12H PRN #12 capsule 06/27/21 Unknown Rx Ondansetron [Zofran Odt] 4 mg PO Q8HR PRN #12 tab.rapdis 06/27/21 Unknown Rx Allergies Allergy/AdvReac Type Severity Reaction Status Date / Time iodine Allergy Anaphylaxis Verified 06/27/21 16:34 ED Review of Systems ROS: Stated complaint: STATES HAS UROSEPSIS Other details as noted in HPI Comment: All other systems reviewed and negative Constitutional: denies: chills, fever Eyes: denies: eye pain, eye discharge, vision change ENT: denies: ear pain, throat pain Respiratory: denies: cough, shortness of breath, wheezing Cardiovascular: denies: chest pain, palpitations Endocrine: no symptoms reported Gastrointestinal: abdominal pain. denies: nausea, vomiting, diarrhea, constipation, hematemesis, melena, hematochezia Genitourinary: denies: urgency, dysuria, discharge Musculoskeletal: denies: back pain, joint swelling, arthralgia Skin: denies: rash, lesions Neurological: denies: headache, weakness, paresthesias Psychiatric: denies: anxiety, depression Hematological/Lymphatic: denies: easy bleeding, easy bruising ED Past Medical Hx - Past Medical History Previous Medical History?: Yes Hx Hypertension: Yes Hx Congestive Heart Failure: No Hx Diabetes: No Hx Psychiatric Treatment: Yes (anxiety) Hx Asthma: No Hx COPD: No Additional medical history: anal cancer; high cholesterol - Surgical History Past Surgical History?: Yes Hx Appendectomy: Yes (1978) Hx Breast Surgery: Yes (1996) Additional Surgical History: x2; knee surgery to left knee 2000; rotator cuff surgery left arm. anal surgery - Social History Smoking Status: Former Smoker Substance Use Type: Alcohol - Medications Home Medications: Home Medications Medication Instructions Recorded Confirmed Last Taken Type FLUoxetine HCL [PROzac] 40 mg PO QDAY 05/18/19 06/27/21 05/17/19 History Ibuprofen [Motrin 800 MG tab] 800 mg PO Q8HR PRN #21 tablet 07/22/19 06/27/21 Unknown Rx Mupirocin [Bactroban 2% OINT] 1 applic TP TID 10 Days #1 tube 07/22/19 06/27/21 Unknown Rx Potassium Chloride [K-Dur] 10 meq PO QDAY #30 tablet 04/16/21 06/27/21 Unknown Rx Pravastatin [Pravachol] 80 mg PO DAILY tablet 04/16/21 06/27/21 Unknown Rx hydroCHLOROthiazide [HCTZ] 25 mg PO QDAY tablet 04/16/21 06/27/21 Unknown Rx traMADoL [Ultram 50 MG tab] 50 mg PO Q6HR PRN tablet 04/16/21 06/27/21 Unknown Rx Dicyclomine [Bentyl] 10 mg PO Q12H PRN #12 capsule 06/27/21 Unknown Rx Ondansetron [Zofran Odt] 4 mg PO Q8HR PRN #12 tab.rapdis 06/27/21 Unknown Rx ED Physical Exam - General Limitations: No Limitations General appearance: alert, in no apparent distress - Head Head exam: Present: atraumatic, normocephalic - Eye Eye exam: Present: normal appearance - Neck Neck exam: Present: normal inspection, full ROM. Absent: lymphadenopathy - Respiratory Respiratory exam: Present: normal lung sounds bilaterally. Absent: respiratory distress, wheezes, rales, rhonchi, stridor, chest wall tenderness, accessory mu scle use, decreased breath sounds, prolonged expiratory - Cardiovascular Cardiovascular Exam: Present: regular rate, normal rhythm, normal heart sounds. Absent: bradycardia, tachycardia, irregular rhythm, systolic murmur, diastolic murmur, rubs, gallop - GI/Abdominal GI/Abdominal exam: Present: soft, tenderness (Mild to upper abdomen), normal bowel sounds. Absent: distended, guarding, rebound, rigid, diminished bowel sounds - Extremities Exam Extremities exam: Present: normal inspection, full ROM - Back Exam Back exam: Present: normal inspection, full ROM. Absent: tenderness, CVA tenderness (R), CVA tenderness (L), muscle spasm, paraspinal tenderness, vertebral tenderness, rash noted - Neurological Exam Neurological exam: Present: alert, oriented X3, normal gait - Psychiatric Psychiatric exam: Present: normal affect, normal mood - Skin Skin exam: Present: warm, dry, intact, normal color. Absent: rash ED Course Vital Signs 06/27/21 06/27/21 15:47 16:33 Temperature 99.1 F Pulse Rate 87 Respiratory 18 Rate Blood Pressure 150/90 [Right] O2 Sat by Pulse 99 98 Oximetry - Reevaluation(s) Reevaluation #1: 06/27/21 20:17 Patient is speaking in full sentences with no signs of distress noted. ED Medical Decision Making - Lab Data Result diagrams: 06/27/21 17:27 06/27/21 17:27 Lab Results 06/27/21 06/27/21 06/27/21 Range/Units 17:27 17:27 Unknown WBC 9.1 (4.5-11.0) K/mm3 RBC 4.76 (3.65-5.03) M/mm3 Hgb 14.3 (10.1-14.3) gm/dl Hct 42.8 (30.3-42.9) % MCV 90 (79-97) fl MCH 30 (28-32) pg MCHC 34 (30-34) % RDW 14.1 (13.2-15.2) % Plt Count 183 (140-440) K/mm3 Lymph % (Auto) 25.9 (13.4-35.0) % [place] % (Auto) 8.4 H (0.0-7.3) % Eos % (Auto) 1.3 (0.0-4.3) % Baso % (Auto) 0.4 (0.0-1.8) % Lymph # (Auto) 2.4 (1.2-5.4) K/mm3 [place] # (Auto) 0.8 (0.0-0.8) K/mm3 Eos # (Auto) 0.1 (0.0-0.4) K/mm3 Baso # (Auto) 0.0 (0.0-0.1) K/mm3 Seg Neutrophils % 64.0 (40.0-70.0) % Seg Neutrophils # 5.8 (1.8-7.7) K/mm3 Sodium 137 (137-145) mmol/L Potassium 3.5 L (3.6-5.0) mmol/L Chloride 100.8 (98-107) mmol/L Carbon Dioxide 22 (22-30) mmol/L Anion Gap 18 mmol/L BUN 9 (7-17) mg/dL Creatinine 0.8 (0.6-1.2) mg/dL Estimated GFR > 60 ml/min BUN/Creatinine Ratio 11 % Glucose 131 H (65-100) mg/dL Calcium 9.1 (8.4-10.2) mg/dL Total Bilirubin 0.60 (0.1-1.2) mg/dL Direct Bilirubin < 0.2 (0-0.2) mg/dL Indirect Bilirubin 0.4 mg/dL AST 26 (5-40) units/L ALT 26 (7-56) units/L Alkaline Phosphatase 71 (35-129) units/L Total Protein 7.9 (6.3-8.2) g/dL Albumin 3.8 L (3.9-5) g/dL Albumin/Globulin Ratio 0.9 % Lipase 24 (13-60) units/L Urine Color Yellow (Yellow) Urine Turbidity Clear (Clear) Urine pH 5.0 (5.0-7.0) Ur Specific [place] 1.023 (1.003-1.030) Urine Protein 100 mg/dl (Negative) mg/dL Urine Glucose (UA) Neg (Negative) mg/dL Urine Ketones Neg (Negative) mg/dL Urine Blood Neg (Negative) Urine Nitrite Neg (Negative) Urine Bilirubin Neg (Negative) Urine Urobilinogen 2.0 (<2.0) mg/dL Ur Leukocyte Esterase Sm (Negative) Urine WBC (Auto) 19.0 H (0.0-6.0) /HPF Urine RBC (Auto) 3.0 (0.0-6.0) /HPF Urine Mucus Few /HPF - Radiology Data [facility] [address] [place] [address] Cat Scan Report Signed Patient: KENDRA LR MR#: [id number] : 1955 Acct:[id number] Age/Sex: 65 / F ADM Date: 06/27/21 Loc: ED Attending Dr: Ordering Physician: MIRNA BAKER NP Date of Service: 06/27/21 Procedure(s): CT abdomen pelvis wo con Accession Number(s): [id number] cc: MIRAN BABAYEV,CHARGE ENTRY CT ABDOMEN AND PELVIS WITHOUT CONTRAST INDICATION: abd pain CONTRAST: Without IV COMPARISON: 02/13/[address] scans at this location are performed using CT dose reduction for ALARA by means of automated exposure control. NOTE: Resolution is decreased and artifact is introduced by the patient's size. FINDINGS: Mild bibasilar atelectatic changes are seen. No pneumoperitoneum is noted. No significant ventral hernia is seen. Mild fatty infiltration of the liver is noted without obvious focal lesion. Liver is mildly enlarged and has a length of 18.5 cm. Spleen is not enlarged. Gallbladder and bile ducts appear within normal limits. No abdominal masses are seen. No urinary tract calculi or evidence of obstruction are noted. No evidence of bowel obstruction is seen. Appendix is not visualized. No inflammatory changes are seen. No free fluid is noted. No lymphadenopathy is seen. No pelvic masses are noted. IMPRESSION: No acute abnormalities are seen Signer Name: Zackary Gamez MD Signed: 06/27/2021 7:54 PM Workstation Name: [id number] Transcribed By: Dictated By: Zackary Gamez MD Electronically Authenticated By: Zackary Gamez MD Signed Date/Time: 06/27/211953 DD/ 50 TD/TT: - Medical Decision Making This is a 65-year-old female that presents with abdominal pain with UTI. Patient is stable and was examined by me. Negative signs of symptoms of appendicitis. Labs obtained. UA obtained. CT of abdomen obtained and dictated by the radiologist. Patient is notified of the report with no questions noted by the patient. Vital signs are stable prior to discharge. Patient received medical treatment in the ED which patient stated symptoms has resovled and subsided. Was instructed note to operate any machinery due to possible drowsiness and stated someone will drive the patient home. A by mouth challenge has been obtained and patient tolerated well with no nausea vomiting. Patient was instructed to continue taking Macrobid for her UTI. Patient was also instructed to Follow-up with a primary care doctor in 3-5 days or if symptoms worsen and continue return to emergency room as soon as possible. At time of discharge, the patient does not seem toxic or ill in appearance. No acute signs of distress noted. Patient agrees to discharge treatment plan of care. No further questions noted by the patient. Critical care attestation.: If time is entered above; I have spent that time in minutes in the direct care of this critically ill patient, excluding procedure time. ED Disposition Clinical Impression: Abdominal pain Qualifiers: Abdominal location: upper abdomen, unspecified Qualified Code(s): R10.10 - Upper abdominal pain, unspecified UTI (urinary tract infection) Qualifiers: Urinary tract infection type: acute cystitis Hematuria presence: without hematuria Qualified Code(s): N30.00 - Acute cystitis without hematuria Disposition: HOME / SELF CARE / HOMELESS Is pt being admited?: No Does the pt Need Aspirin: No Condition: Stable Instructions: Urinary Tract Infection, Adult, Abdominal Pain, Adult Additional Instructions: Follow-up with a primary care doctor in 3-5 days or if symptoms worsen and continue return to emergency room as soon as possible. Continue taking your antibiotics that was prescribed to for your UTI. Prescriptions: Dicyclomine [Bentyl] 10 mg PO Q12H PRN #12 capsule PRN Reason: abdominal pain Ondansetron [Zofran Odt] 4 mg PO Q8HR PRN #12 tab.rapdis PRN Reason: Nausea Referrals: PRIMARY CARE, [Primary Care Provider] - 3-5 Days EDY ANGEL MD [Staff Physician] - 3-5 Days Time of Disposition: 20:29
[2021-06-27 20:58] VITALS: BP 176/87
== END 2021-06-27 21:03 | disposition home or self-care (01) ==
LOC: ED 15:41
DX: N39.0 Urinary tract infection, site not specified (principal); I10 Essential (primary) hypertension; F41.9 Anxiety disorder, unspecified; Z90.49 Acquired absence of other specified parts of digestive tract; Z87.891 Personal history of nicotine dependence; Z88.6 Allergy status to analgesic agent; Z79.899 Other long term (current) drug therapy
CPT/HCPCS: 36415; 74176; 80048; 80076; 81001; 83690; 85025; 87086; 96361; 96374; 96375; 99284; J1170; J1200; J2405; J7030; Q0162